=== PATIENT | male | born 1960 ===

== ENCOUNTER 2017-03-13 20:56 | Inpatient (IN) | payer OTHER ==
[2017-03-13 22:52] LABS: Basophils % (Auto) 0.3 % (0.0-1.8); Eosinophils # (Auto) 0.1 K/mm3 (0.0-0.4); Eosinophils % (Auto) 0.7 % (0.0-4.3); Hematocrit 49.7 % (35.5-45.6); Hemoglobin 16.4 gm/dl (11.8-15.2); Lymphocytes # (Auto) 0.9 K/mm3 (1.2-5.4); Lymphocytes % (Auto) 7.6 % (13.4-35.0); Mean Corpuscular HGB Conc 33 % (32-34); Mean Corpuscular Hemoglobin 31 pg (28-32); Mean Corpuscular Volume 93 fl (84-94); Monocytes # (Auto) 1.2 K/mm3 (0.0-0.8); Monocytes % (Auto) 10.1 % (0.0-7.3); Platelet Count 189 K/mm3 (140-440); Red Blood Count 5.35 M/mm3 (3.65-5.03); Red Cell Distribution Width 13.5 % (13.2-15.2)
[2017-03-13] MEDS ORDERED: NACL 0.9% 1000 ML 2,000 ML ONE (22:58)
[2017-03-13 23:06] LABS: BUN/Creatinine Ratio 12; Blood Urea Nitrogen 13 mg/dL (9-20); Calcium 8.5 mg/dL (8.4-10.2); Hemolysis Index 34
[2017-03-13] MEDS ORDERED: NACL 0.9% 1000 ML 1,000 ML IV ONE ×2 (23:13→23:51)
--- NOTE | 2017-03-14 01:31 | Cat Scan Report ---
FINAL REPORT PROCEDURE: CT ANGIO CHEST TECHNIQUE: Computerized tomographic angiography of the chest was performed after the IV injection of iodinated nonionic contrast including image processing. The image data was postprocessed using 2-dimensional multiplanar reformatted (MPR) and 3-dimensional (MIP and/or volume rendered) techniques. HISTORY: dyspnea, tachycardia, syncope COMPARISON: No prior studies are available for comparison. FINDINGS: Heart and pericardium: Normal. Thoracic aorta: There is no thoracic aortic aneurysm or dissection.. Pulmonary vasculature: There are large bilateral proximal pulmonary emboli. There is a saddle embolus... Lymph nodes: No enlarged thoracic lymph nodes. Lungs: There is suboptimal inspiration. There are no infiltrates, effusions or pneumothoraces.. Pleural space: No effusion, thickening, or pneumothorax. Musculoskeletal structures: No significant abnormality. Upper abdominal structures: No significant abnormality. IMPRESSION: Large bilateral and saddle pulmonary emboli. There is no thoracic aortic aneurysm or dissection. Dr. Enciso was notified by telephone at 12:27 a.m. central time.
[2017-03-14] MEDS ORDERED: HEPARIN 10,000 UNITS/10 ML IV ONE ×2 (01:36→02:00)
--- NOTE | 2017-03-14 01:58 | Emergency Department Report ---
- General Chief Complaint: Syncope Stated Complaint: SYNCOPE Time Seen by Provider: 03/13/17 23:48 Source: patient Mode of arrival: Ambulatory Limitations: No Limitations - History of Present Illness Initial Comments: Patient is a 56-year-old male with past history of hypertension who is presenting to emergency Department today for cough cold congestion for approximately one week. Patient states he feels as though he has the flu he's had a cough and runny nose bodyaches's for a week and a half. Patient states he has exertional shortness of breath. Patient asked his to bring him to the emergency department today and on arrival had a syncopal episode. Patient states he walked up some stairs was very short of breath and then while sitting in the emergency department he did pass out. Patient states the bodyaches or 7 out of 10 in severity. He has had no cervical swelling. Denies any fever. Patient also denies sore throat and nausea vomiting diarrhea at this time. Consistency: constant Improves With: nothing Worsens With: nothing - Related Data Home Medications Medication Instructions Recorded Confirmed Last Taken No Known Home Medications [No 03/13/17 03/13/17 Unknown Reported Home Medications] Allergies Allergy/AdvReac Type Severity Reaction Status Date / Time lisinopril Allergy Nausea Verified 03/13/17 23:09 Penicillins Allergy Itching Verified 03/13/17 23:09 shellfish derived Allergy Hives Verified 03/13/17 23:09 ED Review of Systems ROS: Stated complaint: SYNCOPE Other details as noted in HPI Comment: All other systems reviewed and negative ED Past Medical Hx - Past Medical History Hx Hypertension: Yes Additional medical history: Obesity - Surgical History Additional Surgical History: Bilateral Arthoscopy - Social History Smoking Status: Never Smoker Substance Use Type: None - Medications Home Medications: Home Medications Medication Instructions Recorded Confirmed Last Taken Type No Known Home Medications [No 03/13/17 03/13/17 Unknown History Reported Home Medications] ED Physical Exam - General Limitations: No Limitations General appearance: alert, in no apparent distress - Head Head exam: Present: atraumatic, normocephalic - Eye Eye exam: Present: normal appearance - ENT ENT exam: Present: mucous membranes moist - Neck Neck exam: Present: normal inspection - Respiratory Respiratory exam: Present: normal lung sounds bilaterally. Absent: respiratory distress, wheezes, rales, rhonchi - Cardiovascular Cardiovascular Exam: Present: normal rhythm, tachycardia. Absent: systolic murmur, diastolic murmur, rubs, gallop - GI/Abdominal GI/Abdominal exam: Present: soft, normal bowel sounds. Absent: distended, tenderness, guarding, rebound - Rectal Rectal exam: Present: deferred - Extremities Exam Extremities exam: Present: normal inspection - Back Exam Back exam: Present: normal inspection - Neurological Exam Neurological exam: Present: alert, oriented X3 - Psychiatric Psychiatric exam: Present: normal affect, normal mood - Skin Skin exam: Present: warm, dry, intact, normal color. Absent: rash ED Course Vital Signs 03/13/17 03/13/17 03/13/17 21:01 22:44 22:45 Temperature 98 F Pulse Rate 109 H 111 H 109 H Respiratory 25 H 22 Rate Blood Pressure 114/65 90/50 O2 Sat by Pulse 96 89 Oximetry 03/13/17 03/13/17 23:00 23:03 Temperature Pulse Rate 108 H Respiratory 20 20 Rate Blood Pressure 99/67 O2 Sat by Pulse 95 96 Oximetry ED Medical Decision Making - Lab Data Result diagrams: 03/13/17 22:00 03/13/17 22:00 - EKG Data -: EKG Interpreted by Me - EKG Data Interpretation: other (EKG shows sinus tachycardia 113 axis is leftward does have inferior Q waves no ST segment elevations or depressions is poor R-wave progression, interpretation 2114) - Medical Decision Making Patient's 56-year-old [place] male who is coming in with flulike symptoms. States patient's flu screen was negative because of the syncope shortness of breath and tachycardia CT a chest was performed to rule out PE or possible small pneumonia. The patient does show bilateral PE with saddle embolus there is no evidence of right heart strain at this time. Patient was hydrated with IV fluids and blood pressure did respond well. Patient is no acute distress at this time. Patient will be admitted to dr. Jensen the hospitalist service. Patient was started on heparin bolus and drip. Critical Care Time: Yes Critical care time in (mins) excluding proc time.: 30 Critical care attestation.: If time is entered above; I have spent that time in minutes in the direct care of this critically ill patient, excluding procedure time. ED Disposition Clinical Impression: Pulmonary embolism Qualifiers: Pulmonary embolism type: saddle Chronicity: acute Acute cor pulmonale presence : without acute cor pulmonale Qualified Code(s): I26.92 - Saddle embolus of pulmonary artery without acute cor pulmonale Disposition: DC-09 OP ADMIT IP TO THIS HOSP Is pt being admited?: Yes Does the pt Need Aspirin: No Condition: Serious
[2017-03-14] MEDS ORDERED: HEPARIN 25,000 UNIT in D5W 497.5 ML IV SCH (02:00)
[2017-03-14] MEDS ORDERED: MOTRIN PO PRN (02:34)
[2017-03-14] MEDS ORDERED: MOTRIN ONE (02:36)
[2017-03-14] MEDS ORDERED: NACL 0.9% 1000 ML 1,000 ML IV SCH (03:00)
[2017-03-14] MEDS ORDERED: MILK OF MAGNESIA PO PRN (07:27)
[2017-03-14] MEDS ORDERED: MORPHINE IV PRN (07:27)
[2017-03-14] MEDS ORDERED: PERCOCET 5/325 PO PRN (07:27)
[2017-03-14] MEDS ORDERED: TYLENOL PO PRN (07:27)
[2017-03-14] MEDS ORDERED: ZOFRAN IV PRN (07:27)
[2017-03-14] MEDS ORDERED: DULCOLAX PR PRN (07:27)
[2017-03-14] MEDS ORDERED: DILAUDID IV PRN (07:27)
--- NOTE | 2017-03-14 07:35 | Event Note ---
Date: 03/14/17 See dictated H/p in reports Acute PE Htn
[2017-03-14] MEDS ORDERED: XARELTO PO SCH (08:00)
[2017-03-14] MEDS ORDERED: NACL 0.45% 1000 ML 1,000 ML IV SCH (08:00)
--- NOTE | 2017-03-14 08:11 | History and Physical Report ---
CHIEF COMPLAINT: 1. Shortness of breath. 2. Syncope. HISTORY OF PRESENT ILLNESS: A 56-year-old male presents with cough, cold and congestion of 1 week. The patient also had a syncopal episode while coming to the Emergency Room. Also, shortness of breath on minimal exertion. No chest pain. No fever. No chills. Shortness of breath on minimal exertion, which is new onset. PAST MEDICAL HISTORY: Significant for hypertension. Currently not taking any medications. PAST SURGICAL HISTORY: Bilateral arthroscopy. SOCIAL HISTORY: Does not smoke. No alcohol, no recreational drugs. FAMILY HISTORY: Hypertension. REVIEW OF SYSTEMS: Significant for shortness of breath on exertion, which is new onset. Also, cough and cold and congestion for 1 week and syncope. Otherwise, a 14-point review of systems negative. PHYSICAL EXAMINATION: GENERAL: Middle-aged male, cooperative during examination. VITAL SIGNS: Blood pressure is 99/67, pulse is 108, respirations are 20, sats are 95%. HEENT: Unremarkable. Pupils equal and reactive. NECK: Supple, no lymphadenopathy, no thyromegaly. LUNGS: Scattered rhonchi bilaterally. CARDIOVASCULAR: S1, S2 heard. No gallop, no murmur, no rub. Apical impulse in left fifth intercostal space and midclavicular line. ABDOMEN: Soft and benign. No hepatosplenomegaly. No guarding, no rigidity. Hernial orifices are normal. EXTREMITIES: Good pedal pulses. No pedal edema. CENTRAL NERVOUS SYSTEM: Alert and oriented x 4, nonfocal exam. SKIN: Normal. LABORATORY DATA: Significant for white count 11,900, hemoglobin of 16.4, hematocrit of 49.7, platelet count of 189,000. Electrolytes are normal. Glucose is 167. Chest CT angiogram shows bilateral large emboli and saddle pulmonary embolism. No thoracic aortic aneurysm or dissection. ASSESSMENT AND PLAN: 1. Acute pulmonary embolism. The patient was started on IV heparin protocol and also the patient started on Xarelto 15 mg twice a day. Also, vascular surgery consult was requested because of a saddle embolism. At this point, I do not know whether the patient is a candidate for TPA. The patient is admitted to ICU and Dr. Rocha and Dr. Oconnor consulted. 2. Hypertension. At this point, the patient is slightly hypotensive 99/75. The patient not on any blood pressure medications at home. We will start on blood pressure medicines if his blood pressure goes up. 3. Hyperglycemia. The patient may be having borderline to full blown diabetes. Check hemoglobin A1c. Accu-Cheks a.c. and at bedtime. 2. Deep venous thrombosis prophylaxis. The patient already on IV heparin and Xarelto. JOB# [id number] VSM/NTS
[2017-03-14] MEDS: PEPCID IV SCH ×2 (11:10→23:44)
[2017-03-14 11:20] LABS: Basophils # (Auto) 0.1 K/mm3 (0.0-0.1); Basophils % (Auto) 0.7 % (0.0-1.8); Eosinophils % (Auto) 0.4 % (0.0-4.3); Hematocrit 47.7 % (35.5-45.6); Hemoglobin 15.6 gm/dl (11.8-15.2); Lymphocytes # (Auto) 1.2 K/mm3 (1.2-5.4); Lymphocytes % (Auto) 12.5 % (13.4-35.0); Mean Corpuscular HGB Conc 33 % (32-34); Mean Corpuscular Hemoglobin 31 pg (28-32); Mean Corpuscular Volume 93 fl (84-94); Monocytes # (Auto) 0.9 K/mm3 (0.0-0.8); Monocytes % (Auto) 10.2 % (0.0-7.3); Platelet Count 172 K/mm3 (140-440); Red Blood Count 5.13 M/mm3 (3.65-5.03); Red Cell Distribution Width 13.4 % (13.2-15.2)
[2017-03-14 11:27] LABS: BUN/Creatinine Ratio 14; Blood Urea Nitrogen 11 mg/dL (9-20); Calcium 8.2 mg/dL (8.4-10.2); Hemolysis Index 9
[2017-03-14] MEDS: NOVOLOG SUB-Q SCH ×3 (12:28→23:35)
--- NOTE | 2017-03-14 12:41 | Consultation ---
History of Present Illness - Reason for Consult Consult date: 03/14/17 Saddle Pulmonary Embolus Requesting physician: GODFREY CARMICHAEL - History of Present Illness The patient is a 56-year-old male who presented to the emergency department with complaint of shortness of breath. He states that 10 days ago he required prolonged bed rest secondary to an illness that he thought was the flu. He states that he have fever and chills that required time off of work and again prolonged bed rest. After taken off the remainder of the week he was able to return to work this past Thursday. However upon return to work he did have a cough and shortness of breath. This progressively worsened and included chest and back pain as well as a headache. He decided to present to the emergency department last night and upon ambulating into the emergency department he was told that he had a syncopal episode which required his and onlookers to get assistance from the emergency room staff to get him into the emergency department. Upon getting him into the emergency department he was tachycardic and hypotensive requiring fluid boluses to improve his heart rate and blood pressure. Eventually his workup included a CT of his chest which revealed a large saddle pulmonary embolus. He has since been started on heparin and supplemental oxygen through nasal cannula. He has been stabilized in the emergency department and has no complaints at this time. I have been consulted to violate him for possible thrombolysis of his pulmonary embolus. 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, other (e business specialist) Family history: CAD, stroke Medications and Allergies Allergies Allergy/AdvReac Type Severity Reaction Status Date / Time lisinopril Allergy Nausea Verified 03/13/17 23:09 Penicillins Allergy Itching Verified 03/13/17 23:09 shellfish derived Allergy Hives Verified 03/13/17 23:09 Home Medications Medication Instructions Recorded Confirmed Last Taken Type No Known Home Medications [No 03/13/17 03/13/17 Unknown History Reported Home Medications] Active Meds: Active Medications Acetaminophen (Tylenol) 650 mg PO Q4H PRN PRN Reason: Pain MILD(1-3)/Fever >100.5/HERRING Bisacodyl (Dulcolax) 10 mg MN QDAY PRN PRN Reason: Constipation unrelieved by MOM Famotidine (Pepcid) 20 mg IV BID [facility] Last Admin: 03/14/17 11:10 Dose: 20 mg Hydromorphone HCl (Dilaudid) 0.25 mg IV Q3H PRN PRN Reason: Pain, Moderate (4-6) Heparin Sodium (Porcine) 25, (000 unit/ Dextrose) 500 mls @ 50.62 mls/hr IV TITR PIOTR PRN Reason: 18 UNITS/KG/HR Last Admin: 03/14/17 03:52 Dose: 10.66 units/kg/hr, 30 mls/hr Sodium Chloride (Nacl 0.9% 1000 Ml) 1,000 mls @ 125 mls/hr IV DIRECT PIOTR Sodium Chloride (Nacl 0.45% 1000 Ml) 1,000 mls @ 100 mls/hr IV DIRECT PIOTR Insulin Aspart (Novolog) 0 units SUB-Q ACHS PIOTR PRN Reason: Protocol Last Admin: 03/14/17 12:28 Dose: Not Given Magnesium Hydroxide (Milk Of Magnesia) 30 ml PO Q4H PRN PRN Reason: Constipation Morphine Sulfate (Morphine) 4 mg IV Q4H PRN PRN Reason: Pain , Severe (7-10) Ondansetron HCl (Zofran) 4 mg IV Q8H PRN PRN Reason: N/V unrelieved by Reglan Oxycodone/Acetaminophen (Percocet 5/325) 1 tab PO Q6H PRN PRN Reason: Pain, Moderate (4-6) Rivaroxaban (Xarelto) 15 mg PO BIDDIAB [facility] PRN Reason: Protocol Review of Systems All systems: negative Exam - Constitutional Vitals: Temp Pulse Resp BP Pulse Ox 98 F 108 H 16 99/67 100 03/13/17 21:01 03/13/17 23:00 03/14/17 04:13 03/13/17 23:00 03/14/17 04:13 General appearance: Present: no acute distress - EENT ENT: hearing intact - Neck Neck: Present: supple - Respiratory Respiratory effort: normal - Cardiovascular Heart rate: 100 Rhythm: regular - Extremities Extremities: no ischemia, pulses intact Peripheral Pulses: within normal limits - Abdominal General gastrointestinal: Present: soft, non-tender Male genitourinary: Present: deferred - Rectal Rectal Exam: deferred - Integumentary Integumentary: Present: clear - Musculoskeletal Musculoskeletal: strength equal bilaterally Results - Labs CBC & Chem 7: 03/14/17 10:30 03/14/17 09:17 Labs: Abnormal lab results 03/13/17 03/13/17 03/13/17 Range/Units 21:24 22:00 22:00 WBC 11.9 H (4.5-11.0) K/mm3 RBC 5.35 H (3.65-5.03) M/mm3 Hgb 16.4 H (11.8-15.2) gm/dl Hct 49.7 H (35.5-45.6) % Lymph % (Auto) 7.6 L (13.4-35.0) % [place] % (Auto) 10.1 H (0.0-7.3) % Lymph # 0.9 L (1.2-5.4) K/mm3 [place] # 1.2 H (0.0-0.8) K/mm3 Seg Neutrophils % 81.3 H (40.0-70.0) % Seg Neutrophils # 9.7 H (1.8-7.7) K/mm3 Carbon Dioxide (22-30) mmol/L Glucose 167 H (75-100) mg/dL POC Glucose 141 H (70-105) Calcium (8.4-10.2) mg/dL 03/14/17 03/14/17 03/14/17 Range/Units 09:17 10:30 12:28 WBC (4.5-11.0) K/mm3 RBC 5.13 H (3.65-5.03) M/mm3 Hgb 15.6 H (11.8-15.2) gm/dl Hct 47.7 H (35.5-45.6) % Lymph % (Auto) 12.5 L (13.4-35.0) % [place] % (Auto) 10.2 H (0.0-7.3) % Lymph # (1.2-5.4) K/mm3 [place] # 0.9 H (0.0-0.8) K/mm3 Seg Neutrophils % 76.2 H (40.0-70.0) % Seg Neutrophils # (1.8-7.7) K/mm3 Carbon Dioxide 21 L (22-30) mmol/L Glucose 141 H (75-100) mg/dL POC Glucose 113 H (70-105) Calcium 8.2 L (8.4-10.2) mg/dL - Imaging and Cardiology CT scan - chest: image reviewed Assessment and Plan The patient is a 56-year-old male admitted with a symptomatic saddle embolus. He has now been stabilized and is satting in the mid 90s on supplemental oxygen. Abdomen order a stat 2-D echo to evaluate for evidence of right heart strain. If he has right heart strain and he would benefit from thrombolysis of his pulmonary embolus. If he does not have evidence of right heart strain and then given the size of his pulmonary embolus he still may benefit from thrombolysis however this will be determined by his symptoms and need for supplemental oxygen with activity. I have discussed this with the patient and his express understanding and agrees with the plan.
--- NOTE | 2017-03-14 17:43 | Event Note ---
Date: 03/14/17 Patient was seen and evaluated this morning, patient was hemodynamically stable saturating in the mid 90's. No new compliants. Vascular surgery consulted. Continue management per H/P.
[2017-03-14] MEDS ORDERED: HEPARIN/ 0.45% NACL-25,000 UNIT/500 ML 25,000 UNIT/500 ML BAG IV SCH (20:00)
[2017-03-15 07:22] LABS: Basophils % (Auto) 0.5 % (0.0-1.8); Eosinophils # (Auto) 0.1 K/mm3 (0.0-0.4); Hematocrit 48.5 % (35.5-45.6); Hemoglobin 16.1 gm/dl (11.8-15.2); Lymphocytes # (Auto) 1.1 K/mm3 (1.2-5.4); Lymphocytes % (Auto) 16.2 % (13.4-35.0); Mean Corpuscular HGB Conc 33 % (32-34); Mean Corpuscular Hemoglobin 31 pg (28-32); Mean Corpuscular Volume 94 fl (84-94); Monocytes # (Auto) 0.9 K/mm3 (0.0-0.8); Monocytes % (Auto) 13.4 % (0.0-7.3); Platelet Count 191 K/mm3 (140-440); Red Blood Count 5.19 M/mm3 (3.65-5.03); Red Cell Distribution Width 13.8 % (13.2-15.2)
[2017-03-15 07:45] LABS: Alanine Aminotransferase 15 units/L (7-56); BUN/Creatinine Ratio 13; Blood Urea Nitrogen 12 mg/dL (9-20); Calcium 8.3 mg/dL (8.4-10.2); Hemolysis Index 22
[2017-03-15] MEDS: NOVOLOG SUB-Q SCH ×3 (07:48→22:12)
[2017-03-15] MEDS: PEPCID IV SCH ×2 (11:00→22:12)
--- NOTE | 2017-03-15 11:30 | Event Note ---
Date: 03/15/17 Patient remains tachycardic and requires supplemental oxygen. Has difficulty finishing his sentences secondary shortness of breath. Will proceed with Pulmonary artery thrombolysis.
[2017-03-15] MEDS ORDERED: HEPARIN/NS 5000 UNIT/500ML(CATH LAB) 500 ML IR ONE (11:32)
[2017-03-15] MEDS ORDERED: HEPARIN 10,000 UNITS/10 ML ONE ×2 (11:32→11:34)
[2017-03-15] MEDS ORDERED: NACL 0.9% 500 ML 500 ML ONE (11:34)
[2017-03-15] MEDS ORDERED: VERSED ONE (11:36)
[2017-03-15] MEDS ORDERED: SUBLIMAZE ONE (11:37)
[2017-03-15] MEDS ORDERED: XYLOCAINE 2% INFILTRATI ONE (11:37)
[2017-03-15] MEDS ORDERED: CATHFLO ONE (11:41)
[2017-03-15] MEDS ORDERED: NACL 0.9% 1000 ML 1,000 ML IV SCH (12:00)
[2017-03-15] MEDS ORDERED: BENADRYL ONE (12:00)
[2017-03-15] MEDS ORDERED: NACL 0.9% 1000 ML 1,000 ML SHEATH SCH ×2 (12:00)
[2017-03-15] MEDS: NACL 0.9% 1000 ML 1,000 ML EKOSCLUMEN SCH ×4 (12:42→13:20)
[2017-03-15] MEDS: CATHFLO 10 MG in NACL 0.9% 250ML 250 ML IV SCH ×2 (12:44→13:20)
[2017-03-15] MEDS: CATHFLO 10 MG in NACL 0.9% 250ML 250 ML EKOSDLUMEN SCH ×2 (12:44→13:20)
[2017-03-15] MEDS: HEPARIN/ 0.45% NACL-25,000 UNIT/500 ML 25,000 UNIT/500 ML BAG SHEATH SCH ×4 (12:46→13:20)
[2017-03-15 12:47] LABS: INR 1.09 (0.87-1.13)
[2017-03-15 12:52] LABS: Partial Thromboplastin Time 70.5 Sec. (24.2-36.6)
[2017-03-15] MEDS ORDERED: MORPHINE IV PRN ×16 (12:55→14:17)
[2017-03-15] MEDS ORDERED: ZOFRAN IV PRN ×8 (12:55→14:17)
--- NOTE | 2017-03-15 12:55 | Operative Report ---
Operative Report Operative Report: Date of Procedure: 03/15/2017 Pre-operative Diagnosis: Saddle Pulmonary Embolus Post-operative Diagnosis: Same Procedure(s): 1. Ultrasound-Guided Access Right Common Femoral Vein 2. Ultrasound-Guided Access Right Common Femoral Vein 3. Diagnostic Pulmonary Arteriogram 4. Bilateral Catheters in Pulmonary Arteries 5. Bilateral Pulmonary Artery Thrombolysis with EKOS 106 x 12 cm Thrombolysis Catheters 6. Radiologic Supervision and Interpretation Surgeon: Danis Messer M.D. Orthopedic Cast Specialist: None Anesthesia: Local and IV sedation EBL: Minimal Counts: Correct Complications: None Condition: Stable Findings: Significant thrombus burden and bilateral main pulmonary arteries. Specimen: None Indication: The patient is a 56-year-old male who presented to the emergency department with shortness of breath. Upon arrival and had a syncopal episode requiring significant fluid resuscitation and supplemental oxygen to increase his saturations. He eventually was diagnosed with a saddle pulmonary embolus. Despite resuscitation and supplemental oxygen he has remained tachycardic and short of breath. It is felt that he would benefit from thrombolysis of his pulmonary embolus. He was given the risks, benefits, and alternative procedures and consented to the procedure. Description of Procedure: The patient was brought to the label fuser tender and laid in supine position. After he was adequately sedated his right groin was prepped and draped in normal sterile fashion. Ultrasound was used to identify the right common femoral vein and patency was confirmed. The overlying skin and soft tissue was anesthetized with lidocaine. 2 small stab incisions were made and then under ultrasound guidance the common femoral vein was accessed using an 18-gauge needle. A 0.035 Bentson wire was advanced to the central venous system under fluoroscopy. Using ultrasound guidance the common femoral vein was accessed a second time through the second stab incision using an 18-gauge needle. A 0.035 Bentson wire was then advanced into the central venous system under fluoroscopy. Two 6 Micronesian sheaths were placed by Seldinger technique. With the use of a 6 Micronesian JR4 catheter and the Bentson wire was able to access the main pulmonary artery and then the left pulmonary artery and performed a pulmonary arteriogram was demonstrated significant clot burden within the pulmonary artery. I advanced the Bentson wire into the lower segment and then removed the JR4 catheter and advanced the EKOS catheter into the artery and then advanced the thrombolytic lysis wire. I primed the drug port with 4 mg of TPA and primed the sheath and coolant port with the appropriate amount of heparin. I then advanced a JR4 catheter and Bentson wire through the other 6 Micronesian sheath and accessed the right pulmonary artery and performed an arteriogram which again demonstrated significant thrombus burden. I advanced the Bentson wire into the lower pulmonary segment and then removed the JR4 and advanced the EKOS catheter and then advanced the thrombolytic lysis wire. I primed the drug port with 4 mg of TPA and primed the coolant port and sheath with the appropriate amount of heparin. I then secured the sheaths with 0 silk sutures. All of the sheaths and catheters were then dressed sterilely. The patient tolerated the procedure well. All sponge, needle, and his counts were correct. The patient was taken to the recovery area in stable condition.
[2017-03-15] MEDS ORDERED: NACL 0.45% 1000 ML 1,000 ML IV ONE (14:34)
[2017-03-15] MEDS ORDERED: NACL 0.9% 1000 ML 1,000 ML ONE (14:50)
[2017-03-15] MEDS ORDERED: NOVOLOG SUB-Q ONE (17:16)
[2017-03-15 22:10] LABS: Hematocrit 45.2 % (35.5-45.6); Mean Corpuscular HGB Conc 33 % (32-34); Mean Corpuscular Hemoglobin 31 pg (28-32); Mean Corpuscular Volume 93 fl (84-94); Platelet Count 184 K/mm3 (140-440); Red Blood Count 4.84 M/mm3 (3.65-5.03); Red Cell Distribution Width 13.4 % (13.2-15.2)
[2017-03-15 22:22] LABS: BUN/Creatinine Ratio 16; Blood Urea Nitrogen 14 mg/dL (9-20); Hemolysis Index 11
[2017-03-15 22:22] LABS: Fibrinogen 568 mg/dl (211-480)
[2017-03-15 22:28] LABS: Heparin anti-factor XA < 0.10 U.I./ml (0.3-0.7)
[2017-03-15 22:51] LABS: Band Neutrophils # (Manual) 0.3 K/mm3; Basophils % (Manual) 0 % (0.0-1.8); Eosinophils % (Manual) 0 % (0.0-4.3); Monocytes % (Manual) 0 % (0.0-7.3); Total Cells Counted 100
[2017-03-15 22:52] LABS: Platelet Estimate Consistent w Auto; Poikilocytosis Few
[2017-03-16] MEDS ORDERED: NACL 0.9% 500 ML 1,000 ML ONE (04:14)
[2017-03-16 05:54] LABS: Hematocrit 45.2 % (35.5-45.6); Hemoglobin 14.7 gm/dl (11.8-15.2); Mean Corpuscular HGB Conc 33 % (32-34); Mean Corpuscular Hemoglobin 30 pg (28-32); Mean Corpuscular Volume 93 fl (84-94); Platelet Count 153 K/mm3 (140-440); Red Blood Count 4.85 M/mm3 (3.65-5.03); Red Cell Distribution Width 13.3 % (13.2-15.2)
[2017-03-16 07:55] LABS: BUN/Creatinine Ratio 17; Blood Urea Nitrogen 15 mg/dL (9-20); Calcium 8.2 mg/dL (8.4-10.2); Hemolysis Index 9
--- NOTE | 2017-03-16 09:23 | Progress Note ---
Assessment and Plan Assessment and plan: 56-year-old male was admitted after he was pleasant shortness of breath, hemodynamic instability CTA was done in the ED and was found to have a saddle embolus, patient was stabilized and admitted to ICU Saddle embolus with hypotension - Hypotension is resolved with fluid - Patient was on heparin drip and vascular surgery consulted, EKOS thrombolysis was done - Patient tolerated the procedure well, currently on eliquis - Blood pressure is holding Acute hypoxic respiratory failure - Patient is currently saturating well on room air Disposition -Continue ICU care History Interval history: Patient was seen and evaluated in the cardiac cath recovery room after thrombolysis was done. Hospitalist Physical - Physical exam Narrative exam: Not in cardiopulmonary distress. The patient appeared well nourished and normally developed. Vital signs as documented. Head exam is unremarkable. No scleral icterus . Neck is without jugular venous distension, thyromegaly, or carotid bruits. Lungs are clear to auscultation. Cardiac exam reveals regular rate and Rhythm. First and second heart sounds normal. No murmurs, rubs or gallops. Abdominal exam reveals normal bowel sounds, no masses, no organomegaly and no aortic enlargement. Extremities are nonedematous and both femoral and pedal pulses are normal. STORE CLERK CHECKER: Alert and oriented 3. No focal weakness. - Constitutional Vitals: Temp Pulse Resp BP Pulse Ox 98.8 F 84 14 104/53 98 03/16/17 08:00 03/16/17 08:31 03/16/17 08:31 03/16/17 08:31 03/16/17 08:31 General appearance: Present: no acute distress Results - Labs CBC & Chem 7: 03/16/17 05:15 03/16/17 06:59 Labs: Laboratory Last Values WBC 10.9 K/mm3 (4.5-11.0) 03/16/17 05:15 RBC 4.85 M/mm3 (3.65-5.03) 03/16/17 05:15 Hgb 14.7 gm/dl (11.8-15.2) 03/16/17 05:15 Hct 45.2 % (35.5-45.6) 03/16/17 05:15 MCV 93 fl (84-94) 03/16/17 05:15 MCH 30 pg (28-32) 03/16/17 05:15 MCHC 33 % (32-34) 03/16/17 05:15 RDW 13.3 % (13.2-15.2) 03/16/17 05:15 Plt Count 153 K/mm3 (140-440) 03/16/17 05:15 Lymph % (Auto) [employer] 03/16/17 05:15 [place] % (Auto) [employer] 03/16/17 05:15 Eos % (Auto) [employer] 03/16/17 05:15 Baso % (Auto) [employer] 03/16/17 05:15 Lymph # [employer] 03/16/17 05:15 [place] # [employer] 03/16/17 05:15 Eos # [employer] 03/16/17 05:15 Baso # [employer] 03/16/17 05:15 Add Manual Diff Complete 03/15/17 20:10 Total Counted 100 03/15/17 20:10 Seg Neutrophils % [employer] 03/16/17 05:15 Seg Neuts % (Manual) 94.0 % (40.0-70.0) H 03/15/17 20:10 Band Neutrophils % 3.0 % 03/15/17 20:10 Lymphocytes % (Manual) 3.0 % (13.4-35.0) L 03/15/17 20:10 Reactive Lymphs % (Man) 0 % 03/15/17 20:10 Monocytes % (Manual) 0 % (0.0-7.3) 03/15/17 20:10 Eosinophils % (Manual) 0 % (0.0-4.3) 03/15/17 20:10 Basophils % (Manual) 0 % (0.0-1.8) 03/15/17 20:10 Metamyelocytes % 0 % 03/15/17 20:10 Myelocytes % 0 % 03/15/17 20:10 Promyelocytes % 0 % 03/15/17 20:10 Blast Cells % 0 % 03/15/17 20:10 Nucleated RBC % Not Reportable 03/15/17 20:10 Seg Neutrophils # [employer] 03/16/17 05:15 Seg Neutrophils # Man 8.0 K/mm3 (1.8-7.7) H 03/15/17 20:10 Band Neutrophils # 0.3 K/mm3 03/15/17 20:10 Lymphocytes # (Manual) 0.3 K/mm3 (1.2-5.4) L 03/15/17 20:10 Abs React Lymphs (Man) 0.0 K/mm3 03/15/17 20:10 Monocytes # (Manual) 0.0 K/mm3 (0.0-0.8) 03/15/17 20:10 Eosinophils # (Manual) 0.0 K/mm3 (0.0-0.4) 03/15/17 20:10 Basophils # (Manual) 0.0 K/mm3 (0.0-0.1) 03/15/17 20:10 Metamyelocytes # 0.0 K/mm3 03/15/17 20:10 Myelocytes # 0.0 K/mm3 03/15/17 20:10 Promyelocytes # 0.0 K/mm3 03/15/17 20:10 Blast Cells # 0.0 K/mm3 03/15/17 20:10 WBC Morphology Not Reportable 03/15/17 20:10 Hypersegmented Neuts Not Reportable 03/15/17 20:10 Hyposegmented Neuts Not Reportable 03/15/17 20:10 Hypogranular Neuts Not Reportable 03/15/17 20:10 Smudge Cells Not Reportable 03/15/17 20:10 Toxic Granulation Not Reportable 03/15/17 20:10 Toxic Vacuolation Not Reportable 03/15/17 20:10 Dohle Bodies Not Reportable 03/15/17 20:10 Pelger-Huet Anomaly Not Reportable 03/15/17 20:10 Seth Rods Not Reportable 03/15/17 20:10 Platelet Estimate Consistent w auto 03/15/17 20:10 Clumped Platelets Not Reportable 03/15/17 20:10 Plt Clumps, EDTA Not Reportable 03/15/17 20:10 Large Platelets Not Reportable 03/15/17 20:10 Giant Platelets Not Reportable 03/15/17 20:10 Platelet Satelliting Not Reportable 03/15/17 20:10 Plt Morphology Comment Not Reportable 03/15/17 20:10 RBC Morphology Not Reportable 03/15/17 20:10 Dimorphic RBCs Not Reportable 03/15/17 20:10 Polychromasia Not Reportable 03/15/17 20:10 Hypochromasia Not Reportable 03/15/17 20:10 Poikilocytosis Few 03/15/17 20:10 Anisocytosis Not Reportable 03/15/17 20:10 Microcytosis Not Reportable 03/15/17 20:10 Macrocytosis Not Reportable 03/15/17 20:10 Spherocytes Not Reportable 03/15/17 20:10 Pappenheimer Bodies Not Reportable 03/15/17 20:10 Sickle Cells Not Reportable 03/15/17 20:10 Target Cells Not Reportable 03/15/17 20:10 Tear Drop Cells Not Reportable 03/15/17 20:10 Ovalocytes Not Reportable 03/15/17 20:10 Helmet Cells Not Reportable 03/15/17 20:10 Lewis-Blacktail Bodies Not Reportable 03/15/17 20:10 Hale Rings Not Reportable 03/15/17 20:10 Beaver Cells Not Reportable 03/15/17 20:10 Bite Cells Not Reportable 03/15/17 20:10 Crenated Cell Not Reportable 03/15/17 20:10 Elliptocytes Not Reportable 03/15/17 20:10 Acanthocytes (Spur) Not Reportable 03/15/17 20:10 Rouleaux Not Reportable 03/15/17 20:10 Hemoglobin C Crystals Not Reportable 03/15/17 20:10 Schistocytes Not Reportable 03/15/17 20:10 Malaria parasites Not Reportable 03/15/17 20:10 Osman Bodies Not Reportable 03/15/17 20:10 Hem Pathologist Commnt No 03/15/17 20:10 PT 14.7 Sec. (12.2-14.9) 03/15/17 12:21 INR 1.09 (0.87-1.13) 03/15/17 12:21 APTT 70.5 Sec. (24.2-36.6) H* 03/15/17 12:21 Fibrinogen 375 mg/dl (211-480) 03/16/17 06:59 Heparin Anti-Xa Level < 0.10 U.I./ml (0.3-0.7) L 03/15/17 Unknown Sodium 141 mmol/L (137-145) 03/16/17 06:59 Potassium 4.5 mmol/L (3.6-5.0) 03/16/17 06:59 Chloride 108.6 mmol/L (98-107) H 03/16/17 06:59 Carbon Dioxide 23 mmol/L (22-30) 03/16/17 06:59 Anion Gap 14 mmol/L 03/16/17 06:59 BUN 15 mg/dL (9-20) 03/16/17 06:59 Creatinine 0.9 mg/dL (0.8-1.5) 03/16/17 06:59 Estimated GFR > 60 ml/min 03/16/17 06:59 BUN/Creatinine Ratio 17 % 03/16/17 06:59 Glucose 114 mg/dL (75-100) H 03/16/17 06:59 POC Glucose 172 (70-105) H 03/15/17 22:05 Hemoglobin A1c 5.8 % (4-6) 03/14/17 10:30 Calcium 8.2 mg/dL (8.4-10.2) L 03/16/17 06:59 Total Bilirubin 0.40 mg/dL (0.1-1.2) 03/15/17 06:57 AST 16 units/L (5-40) 03/15/17 06:57 ALT 15 units/L (7-56) 03/15/17 06:57 Alkaline Phosphatase 54 units/L (35-129) 03/15/17 06:57 Total Protein 6.9 g/dL (6.3-8.2) 03/15/17 06:57 Albumin 3.0 g/dL (3.9-5) L 03/15/17 06:57 Albumin/Globulin Ratio 0.8 % 03/15/17 06:57
[2017-03-16] MEDS: PEPCID PO SCH ×2 (09:43→21:07)
[2017-03-16] MEDS: NOVOLOG SUB-Q SCH ×4 (09:43→21:07)
--- NOTE | 2017-03-16 10:11 | Progress Note ---
Assessment and Plan Patient doing well following thrombolytic therapy for his pulmonary emboli. He will need further evaluation with respiratory therapy and pulmonary/critical care to determine his O2 needs. Has not yet been out of bed yet. Would recommend that the patient be ambulated following his recovery from sheath removal. Subjective Date of service: 03/16/17 Interval history: Patient with subtle pulmonary emboli status post EKOS catheter placement and removal. At time of examination, the patient was sitting up in bed breathing comfortably with oxygen by nasal cannula. He has not yet been taken out of bed as his sheaths were just removed. Completes of chest pain or respiratory distress. Vital signs noted Objective - Constitutional Vitals: Vital Signs - 12hr 03/15/17 03/15/17 03/15/17 22:10 22:20 22:30 Temperature Pulse Rate 89 82 85 Pulse Rate [ Left Posterior Tibial] Pulse Rate [ Right Dorsalis Pedis] Pulse Rate [ Right Posterior Tibial] Respiratory 22 18 19 Rate Blood Pressure 118/69 118/69 118/69 O2 Sat by Pulse 97 97 96 Oximetry 03/15/17 03/15/17 03/15/17 22:40 22:50 23:00 Temperature Pulse Rate 85 85 80 Pulse Rate [ Left Posterior Tibial] Pulse Rate [ Right Dorsalis Pedis] Pulse Rate [ Right Posterior Tibial] Respiratory 17 16 16 Rate Blood Pressure 118/69 118/69 110/68 O2 Sat by Pulse 97 97 93 Oximetry 03/15/17 03/15/17 03/15/17 23:10 23:20 23:30 Temperature Pulse Rate 73 81 78 Pulse Rate [ Left Posterior Tibial] Pulse Rate [ Right Dorsalis Pedis] Pulse Rate [ Right Posterior Tibial] Respiratory 17 17 17 Rate Blood Pressure 118/69 118/69 118/69 O2 Sat by Pulse 98 98 98 Oximetry 03/15/17 03/15/17 03/15/17 23:34 23:35 23:40 Temperature 97.8 F Pulse Rate 79 80 Pulse Rate [ Left Posterior Tibial] Pulse Rate [ Right Dorsalis Pedis] Pulse Rate [ Right Posterior Tibial] Respiratory 16 17 Rate Blood Pressure 110/68 118/69 O2 Sat by Pulse 99 99 Oximetry 03/15/17 03/15/17 03/16/17 23:50 23:54 00:00 Temperature Pulse Rate 73 74 76 Pulse Rate [ Left Posterior Tibial] Pulse Rate [ Right Dorsalis Pedis] Pulse Rate [ Right Posterior Tibial] Respiratory 15 17 19 Rate Blood Pressure 118/69 118/69 100/66 O2 Sat by Pulse 99 96 98 Oximetry 03/16/17 03/16/17 03/16/17 00:10 00:20 00:30 Temperature Pulse Rate 73 85 73 Pulse Rate [ Left Posterior Tibial] Pulse Rate [ Right Dorsalis Pedis] Pulse Rate [ Right Posterior Tibial] Respiratory 18 16 18 Rate Blood Pressure 110/68 110/68 110/68 O2 Sat by Pulse 98 99 98 Oximetry 03/16/17 03/16/17 03/16/17 00:38 00:40 00:50 Temperature Pulse Rate 75 80 Pulse Rate [ 78 Left Posterior Tibial] Pulse Rate [ Right Dorsalis Pedis] Pulse Rate [ 78 Right Posterior Tibial] Respiratory 17 17 Rate Blood Pressure 100/66 100/66 O2 Sat by Pulse 98 98 Oximetry 03/16/17 03/16/17 03/16/17 01:00 01:10 01:20 Temperature Pulse Rate 85 77 83 Pulse Rate [ Left Posterior Tibial] Pulse Rate [ Right Dorsalis Pedis] Pulse Rate [ Right Posterior Tibial] Respiratory 14 17 18 Rate Blood Pressure 100/66 109/66 109/66 O2 Sat by Pulse 99 97 97 Oximetry 03/16/17 03/16/17 03/16/17 01:30 01:40 01:50 Temperature Pulse Rate 75 74 75 Pulse Rate [ Left Posterior Tibial] Pulse Rate [ Right Dorsalis Pedis] Pulse Rate [ Right Posterior Tibial] Respiratory 17 16 16 Rate Blood Pressure 109/66 109/66 109/66 O2 Sat by Pulse 97 97 97 Oximetry 03/16/17 03/16/17 03/16/17 02:00 02:10 02:20 Temperature Pulse Rate 79 69 65 Pulse Rate [ Left Posterior Tibial] Pulse Rate [ Right Dorsalis Pedis] Pulse Rate [ Right Posterior Tibial] Respiratory 16 14 14 Rate Blood Pressure 100/67 100/67 100/67 O2 Sat by Pulse 95 98 98 Oximetry 03/16/17 03/16/17 03/16/17 02:30 02:40 02:50 Temperature Pulse Rate 71 72 74 Pulse Rate [ Left Posterior Tibial] Pulse Rate [ Right Dorsalis Pedis] Pulse Rate [ Right Posterior Tibial] Respiratory 19 16 14 Rate Blood Pressure 100/67 100/67 100/67 O2 Sat by Pulse 97 100 100 Oximetry 03/16/17 03/16/17 03/16/17 03:00 03:10 03:20 Temperature Pulse Rate 74 76 72 Pulse Rate [ Left Posterior Tibial] Pulse Rate [ Right Dorsalis Pedis] Pulse Rate [ Right Posterior Tibial] Respiratory 20 18 19 Rate Blood Pressure 118/74 118/74 100/67 O2 Sat by Pulse 100 99 98 Oximetry 03/16/17 03/16/17 03/16/17 03:21 03:30 03:40 Temperature 97.4 F L Pulse Rate 70 72 Pulse Rate [ Left Posterior Tibial] Pulse Rate [ Right Dorsalis Pedis] Pulse Rate [ Right Posterior Tibial] Respiratory 16 17 Rate Blood Pressure 100/67 100/67 O2 Sat by Pulse 99 98 Oximetry 03/16/17 03/16/17 03/16/17 03:50 04:00 04:10 Temperature Pulse Rate 70 66 85 Pulse Rate [ 80 Left Posterior Tibial] Pulse Rate [ 80 Right Dorsalis Pedis] Pulse Rate [ 80 Right Posterior Tibial] Respiratory 17 16 15 Rate Blood Pressure 100/67 108/50 108/50 O2 Sat by Pulse 99 99 98 Oximetry 03/16/17 03/16/17 03/16/17 04:20 04:30 04:40 Temperature Pulse Rate 88 90 87 Pulse Rate [ Left Posterior Tibial] Pulse Rate [ Right Dorsalis Pedis] Pulse Rate [ Right Posterior Tibial] Respiratory 20 22 21 Rate Blood Pressure 108/50 108/50 108/50 O2 Sat by Pulse 98 98 99 Oximetry 03/16/17 03/16/17 03/16/17 04:50 05:00 05:10 Temperature Pulse Rate 93 H 88 88 Pulse Rate [ Left Posterior Tibial] Pulse Rate [ Right Dorsalis Pedis] Pulse Rate [ Right Posterior Tibial] Respiratory 21 14 18 Rate Blood Pressure 108/50 119/78 119/78 O2 Sat by Pulse 97 97 98 Oximetry 03/16/17 03/16/17 03/16/17 05:20 05:30 05:40 Temperature Pulse Rate 81 81 76 Pulse Rate [ Left Posterior Tibial] Pulse Rate [ Right Dorsalis Pedis] Pulse Rate [ Right Posterior Tibial] Respiratory 10 L 21 19 Rate Blood Pressure 119/78 119/78 119/78 O2 Sat by Pulse 97 98 97 Oximetry 03/16/17 03/16/17 03/16/17 05:50 06:00 06:10 Temperature Pulse Rate 73 75 73 Pulse Rate [ Left Posterior Tibial] Pulse Rate [ Right Dorsalis Pedis] Pulse Rate [ Right Posterior Tibial] Respiratory 18 19 17 Rate Blood Pressure 119/78 122/67 122/67 O2 Sat by Pulse 97 98 98 Oximetry 03/16/17 03/16/17 03/16/17 06:20 06:30 06:40 Temperature Pulse Rate 74 84 87 Pulse Rate [ Left Posterior Tibial] Pulse Rate [ Right Dorsalis Pedis] Pulse Rate [ Right Posterior Tibial] Respiratory 16 15 20 Rate Blood Pressure 122/67 122/67 122/67 O2 Sat by Pulse 98 98 99 Oximetry 03/16/17 03/16/17 03/16/17 06:52 07:00 07:10 Temperature Pulse Rate 80 82 76 Pulse Rate [ Left Posterior Tibial] Pulse Rate [ Right Dorsalis Pedis] Pulse Rate [ Right Posterior Tibial] Respiratory 17 18 13 Rate Blood Pressure 122/67 127/84 127/84 O2 Sat by Pulse 99 98 99 Oximetry 03/16/17 03/16/17 03/16/17 07:21 07:31 07:41 Temperature Pulse Rate 72 77 87 Pulse Rate [ Left Posterior Tibial] Pulse Rate [ Right Dorsalis Pedis] Pulse Rate [ Right Posterior Tibial] Respiratory 19 20 16 Rate Blood Pressure 127/84 127/84 O2 Sat by Pulse 99 99 99 Oximetry 03/16/17 03/16/17 03/16/17 07:51 08:00 08:01 Temperature 98.8 F Pulse Rate 72 75 Pulse Rate [ Left Posterior Tibial] Pulse Rate [ Right Dorsalis Pedis] Pulse Rate [ Right Posterior Tibial] Respiratory 12 15 Rate Blood Pressure 127/84 104/53 O2 Sat by Pulse 99 99 Oximetry 03/16/17 03/16/17 03/16/17 08:11 08:21 08:31 Temperature Pulse Rate 73 74 84 Pulse Rate [ Left Posterior Tibial] Pulse Rate [ Right Dorsalis Pedis] Pulse Rate [ Right Posterior Tibial] Respiratory 24 18 14 Rate Blood Pressure 104/53 104/53 104/53 O2 Sat by Pulse 100 99 98 Oximetry 03/16/17 03/16/17 03/16/17 08:41 08:51 09:01 Temperature Pulse Rate 88 83 79 Pulse Rate [ Left Posterior Tibial] Pulse Rate [ Right Dorsalis Pedis] Pulse Rate [ Right Posterior Tibial] Respiratory 15 14 21 Rate Blood Pressure 104/53 104/53 109/67 O2 Sat by Pulse 91 99 98 Oximetry 03/16/17 03/16/17 03/16/17 09:11 09:21 09:31 Temperature Pulse Rate 92 H 85 88 Pulse Rate [ Left Posterior Tibial] Pulse Rate [ Right Dorsalis Pedis] Pulse Rate [ Right Posterior Tibial] Respiratory 20 14 18 Rate Blood Pressure 104/53 104/53 104/53 O2 Sat by Pulse 98 99 97 Oximetry 03/16/17 09:41 Temperature Pulse Rate 84 Pulse Rate [ Left Posterior Tibial] Pulse Rate [ Right Dorsalis Pedis] Pulse Rate [ Right Posterior Tibial] Respiratory 18 Rate Blood Pressure 104/53 O2 Sat by Pulse 98 Oximetry General appearance: Present: no acute distress, obese - EENT Eyes: PERRL, EOM intact ENT: hearing intact - Neck Neck: supple, normal ROM - Respiratory Respiratory effort: normal - Breasts Breasts: deferred - Cardiovascular Rhythm: regular Extremities: no ischemia - Gastrointestinal General gastrointestinal: Present: deferred - Genitourinary Male genitourinary: deferred - Integumentary Integumentary: clear, warm - Psychiatric Psychiatric: appropriate mood/affect, cooperative - Labs CBC & Chem 7: 03/16/17 05:15 03/16/17 06:59 Labs: Abnormal lab results 03/15/17 03/15/17 03/15/17 Range/Units 12:21 17:09 20:10 Seg Neuts % (Manual) (40.0-70.0) % Lymphocytes % (Manual) (13.4-35.0) % Seg Neutrophils # Man (1.8-7.7) K/mm3 Lymphocytes # (Manual) (1.2-5.4) K/mm3 APTT 70.5 H* (24.2-36.6) Sec. Fibrinogen 575 H (211-480) mg/dl Heparin Anti-Xa Level (0.3-0.7) U.I./ml Chloride (98-107) mmol/L Carbon Dioxide 20 L (22-30) mmol/L Glucose 200 H (75-100) mg/dL POC Glucose 150 H (70-105) Calcium 8.0 L (8.4-10.2) mg/dL 03/15/17 03/15/17 03/15/17 Range/Units 20:10 22:05 Unknown Seg Neuts % (Manual) 94.0 H (40.0-70.0) % Lymphocytes % (Manual) 3.0 L (13.4-35.0) % Seg Neutrophils # Man 8.0 H (1.8-7.7) K/mm3 Lymphocytes # (Manual) 0.3 L (1.2-5.4) K/mm3 APTT (24.2-36.6) Sec. Fibrinogen 568 H (211-480) mg/dl Heparin Anti-Xa Level < 0.10 L (0.3-0.7) U.I./ml Chloride (98-107) mmol/L Carbon Dioxide (22-30) mmol/L Glucose (75-100) mg/dL POC Glucose 172 H (70-105) Calcium (8.4-10.2) mg/dL 03/16/17 Range/Units 06:59 Seg Neuts % (Manual) (40.0-70.0) % Lymphocytes % (Manual) (13.4-35.0) % Seg Neutrophils # Man (1.8-7.7) K/mm3 Lymphocytes # (Manual) (1.2-5.4) K/mm3 APTT (24.2-36.6) Sec. Fibrinogen (211-480) mg/dl Heparin Anti-Xa Level (0.3-0.7) U.I./ml Chloride 108.6 H (98-107) mmol/L Carbon Dioxide (22-30) mmol/L Glucose 114 H (75-100) mg/dL POC Glucose (70-105) Calcium 8.2 L (8.4-10.2) mg/dL
--- NOTE | 2017-03-16 10:13 | Event Note ---
Date: 03/16/17 Pt is status post Ekos placement and subsequent removal for treatment of symptomatic PE. Catheters were removed without incident this morning. Currently he is very comfortable and has no complaints of SOB or chest pain. He can speak in complete sentences without any sign of dyspnea. He has not gotten out of bed yet, so he's not been able to physical exert himself after the procedure. There is no further need for acute interventional vascular services. Do not hesitate to contact us with questions.
[2017-03-16] MEDS: ELIQUIS PO SCH ×2 (11:28→21:06)
--- NOTE | 2017-03-16 17:15 | Consultation ---
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 Was sick recently with flu-like symptoms, laid in bed a lot. Subsequently developed increased SOB and a syncopal episode on presentation. Found to have large bilateral PE and is s/p EKOS now with improved SOB, on RA. Denies hx of VTE but mother had hx. No chest pain, fevers, chills, cough. Active Medications Acetaminophen (Tylenol) 650 mg PO Q4H PRN PRN Reason: Pain MILD(1-3)/Fever >100.5/HERRING Apixaban (Eliquis) 10 mg PO Q12HR PIOTR PRN Reason: Protocol Stop: 03/22/17 09:59 Last Admin: 03/16/17 11:28 Dose: 10 mg Apixaban (Eliquis) 5 mg PO Q12HR PIOTR PRN Reason: Protocol Bisacodyl (Dulcolax) 10 mg AK QDAY PRN PRN Reason: Constipation unrelieved by MOM Famotidine (Pepcid) 20 mg PO BID [facility] Last Admin: 03/16/17 09:43 Dose: 20 mg Hydromorphone HCl (Dilaudid) 0.25 mg IV Q3H PRN PRN Reason: Pain, Moderate (4-6) Insulin Aspart (Novolog) 0 units SUB-Q ACHS [facility] PRN Reason: Protocol Last Admin: 03/16/17 15:31 Dose: Not Given Magnesium Hydroxide (Milk Of Magnesia) 30 ml PO Q4H PRN PRN Reason: Constipation Morphine Sulfate (Morphine) 2 mg IV Q4H PRN PRN Reason: Pain, Moderate (4-6) Morphine Sulfate (Morphine) 4 mg IV Q4H PRN PRN Reason: Pain , Severe (7-10) Ondansetron HCl (Zofran) 4 mg IV Q8H PRN PRN Reason: Nausea And Vomiting Oxycodone/Acetaminophen (Percocet 5/325) 1 tab PO Q6H PRN PRN Reason: Pain, Moderate (4-6) 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, full code, other (consulting business developer). denies: smoking, alcohol abuse, prescription drug abuse, IV drug use Family history: CAD, stroke Medications and Allergies Allergies Allergy/AdvReac Type Severity Reaction Status Date / Time lisinopril Allergy Nausea Verified 03/13/17 23:09 Penicillins Allergy Itching Verified 03/13/17 23:09 shellfish derived Allergy Hives Verified 03/13/17 23:09 Home Medications Medication Instructions Recorded Confirmed Last Taken Type RX: No Known Home Medications [No 03/13/17 03/13/17 Unknown History Reported Home Medications] Active Meds: Active Medications Acetaminophen (Tylenol) 650 mg PO Q4H PRN PRN Reason: Pain MILD(1-3)/Fever >100.5/HERRING Apixaban (Eliquis) 10 mg PO Q12HR PIOTR PRN Reason: Protocol Stop: 03/22/17 09:59 Last Admin: 03/16/17 11:28 Dose: 10 mg Apixaban (Eliquis) 5 mg PO Q12HR PIOTR PRN Reason: Protocol Bisacodyl (Dulcolax) 10 mg [place] QDAY PRN PRN Reason: Constipation unrelieved by MOM Famotidine (Pepcid) 20 mg PO BID [facility] Last Admin: 03/16/17 09:43 Dose: 20 mg Hydromorphone HCl (Dilaudid) 0.25 mg IV Q3H PRN PRN Reason: Pain, Moderate (4-6) Insulin Aspart (Novolog) 0 units SUB-Q ACHS PIOTR PRN Reason: Protocol Last Admin: 03/16/17 15:31 Dose: Not Given Magnesium Hydroxide (Milk Of Magnesia) 30 ml PO Q4H PRN PRN Reason: Constipation Morphine Sulfate (Morphine) 2 mg IV Q4H PRN PRN Reason: Pain, Moderate (4-6) Morphine Sulfate (Morphine) 4 mg IV Q4H PRN PRN Reason: Pain , Severe (7-10) Ondansetron HCl (Zofran) 4 mg IV Q8H PRN PRN Reason: Nausea And Vomiting Oxycodone/Acetaminophen (Percocet 5/325) 1 tab PO Q6H PRN PRN Reason: Pain, Moderate (4-6) Review of Systems All systems: negative Physical Examination Vital signs: Vital Signs Temp Pulse BP Pulse Ox 98 F 109 H 114/65 96 03/13/17 21:01 03/13/17 21:01 03/13/17 21:01 03/13/17 21:01 General appearance: no acute distress, alert, other (obese) Eyes: non-icteric ENT: oropharynx moist Neck: supple Effort: normal Ascultation: Bilateral: clear Cardiovascular: regular rate and rhythm (no mrg) Integumentary: normal Extremities: no cyanosis, no edema (although L leg looks slightly larger in circumference), pink and warm normal mental status, non-focal exam, pupils equal and round, CN II-XII normal mood appropriate, affect normal Results - Laboratory Findings CBC and BMP: 03/16/17 05:15 03/16/17 06:59 PT/INR, D-dimer PT 14.7 Sec. (12.2-14.9) 03/15/17 12:21 INR 1.09 (0.87-1.13) 03/15/17 12:21 Abnormal lab findings: Abnormal Labs 03/13/17 03/13/17 03/13/17 21:24 22:00 22:00 WBC 11.9 H RBC 5.35 H Hgb 16.4 H Hct 49.7 H Lymph % (Auto) 7.6 L [place] % (Auto) 10.1 H Lymph # 0.9 L [place] # 1.2 H Seg Neutrophils % 81.3 H Seg Neuts % (Manual) Lymphocytes % (Manual) Seg Neutrophils # 9.7 H Seg Neutrophils # Man Lymphocytes # (Manual) APTT Fibrinogen Heparin Anti-Xa Level Chloride Carbon Dioxide Glucose 167 H POC Glucose 141 H Calcium Albumin 03/14/17 03/14/17 03/14/17 09:17 10:30 12:28 WBC RBC 5.13 H Hgb 15.6 H Hct 47.7 H Lymph % (Auto) 12.5 L [place] % (Auto) 10.2 H Lymph # [place] # 0.9 H Seg Neutrophils % 76.2 H Seg Neuts % (Manual) Lymphocytes % (Manual) Seg Neutrophils # Seg Neutrophils # Man Lymphocytes # (Manual) APTT Fibrinogen Heparin Anti-Xa Level Chloride Carbon Dioxide 21 L Glucose 141 H POC Glucose 113 H Calcium 8.2 L Albumin 03/14/17 03/14/17 03/15/17 17:36 23:25 06:57 WBC RBC 5.19 H Hgb 16.1 H Hct 48.5 H Lymph % (Auto) [place] % (Auto) 13.4 H Lymph # 1.1 L [place] # 0.9 H Seg Neutrophils % Seg Neuts % (Manual) Lymphocytes % (Manual) Seg Neutrophils # Seg Neutrophils # Man Lymphocytes # (Manual) APTT Fibrinogen Heparin Anti-Xa Level Chloride Carbon Dioxide Glucose POC Glucose 110 H 159 H Calcium Albumin 03/15/17 03/15/17 03/15/17 06:57 12:21 17:09 WBC RBC Hgb Hct Lymph % (Auto) [place] % (Auto) Lymph # [place] # Seg Neutrophils % Seg Neuts % (Manual) Lymphocytes % (Manual) Seg Neutrophils # Seg Neutrophils # Man Lymphocytes # (Manual) APTT 70.5 H* Fibrinogen 575 H Heparin Anti-Xa Level Chloride 108.6 H Carbon Dioxide 21 L Glucose 116 H POC Glucose 150 H Calcium 8.3 L Albumin 3.0 L 03/15/17 03/15/17 03/15/17 20:10 20:10 22:05 WBC RBC Hgb Hct Lymph % (Auto) [place] % (Auto) Lymph # [place] # Seg Neutrophils % Seg Neuts % (Manual) 94.0 H Lymphocytes % (Manual) 3.0 L Seg Neutrophils # Seg Neutrophils # Man 8.0 H Lymphocytes # (Manual) 0.3 L APTT Fibrinogen Heparin Anti-Xa Level Chloride Carbon Dioxide 20 L Glucose 200 H POC Glucose 172 H Calcium 8.0 L Albumin 03/15/17 03/16/17 03/16/17 Unknown 06:59 08:08 WBC RBC Hgb Hct Lymph % (Auto) [place] % (Auto) Lymph # [place] # Seg Neutrophils % Seg Neuts % (Manual) Lymphocytes % (Manual) Seg Neutrophils # Seg Neutrophils # Man Lymphocytes # (Manual) APTT Fibrinogen 568 H Heparin Anti-Xa Level < 0.10 L Chloride 108.6 H Carbon Dioxide Glucose 114 H POC Glucose 113 H Calcium 8.2 L Albumin 03/16/17 03/16/17 11:41 15:17 WBC RBC Hgb Hct Lymph % (Auto) [place] % (Auto) Lymph # [place] # Seg Neutrophils % Seg Neuts % (Manual) Lymphocytes % (Manual) Seg Neutrophils # Seg Neutrophils # Man Lymphocytes # (Manual) APTT Fibrinogen Heparin Anti-Xa Level Chloride Carbon Dioxide Glucose POC Glucose 109 H 111 H Calcium Albumin - Diagnostic Findings Chest x-ray: report reviewed, image reviewed CT scan - chest: report reviewed, image reviewed Assessment and Plan Imp: 1. Acute PE and bilateral DVT; risk factors -> immobility/stasis, obesity, family history 2. Syncope 2/2 above 3. Morbid obesity Rec: 1. Eliquis per protocol; needs at least 6 months of OAC 2. Bed rest tonight given bilateral DVTs 3. Weight loss 4. Consider hypercoag. work-up Plan of care reviewed with patient, he understands/agrees Thanks for the consult. Will follow closely.
--- NOTE | 2017-03-16 17:38 | Progress Note ---
Assessment and Plan Assessment and plan: 56-year-old male was admitted after he was pleasant shortness of breath, hemodynamic instability CTA was done in the ED and was found to have a saddle embolus, patient was stabilized and admitted to ICU Saddle embolus with hypotension - Hypotension is resolved with fluid - Patient was on heparin drip and vascular surgery consulted, EKOS thrombolysis was done - Patient tolerated the procedure well, currently on eliquis - Blood pressure is holding Bilateral lower extremity DVT - Doppler U/S showed bilateral DVT Acute hypoxic respiratory failure - Patient is currently saturating well on room air Disposition -Continue ICU care History Interval history: Patient was seen and evaluated patient didn't have SOB, fever or chills. Hospitalist Physical - Physical exam Narrative exam: Not in cardiopulmonary distress. The patient appeared well nourished and normally developed. Vital signs as documented. Head exam is unremarkable. No scleral icterus . Neck is without jugular venous distension, thyromegaly, or carotid bruits. Lungs are clear to auscultation. Cardiac exam reveals regular rate and Rhythm. First and second heart sounds normal. No murmurs, rubs or gallops. Abdominal exam reveals normal bowel sounds, no masses, no organomegaly and no aortic enlargement. Extremities are nonedematous and both femoral and pedal pulses are normal. SECURITY SYSTEM INSTALLER: Alert and oriented 3. No focal weakness. - Constitutional Vitals: Temp Pulse Resp BP Pulse Ox 98.2 F 100 H 25 H 136/88 98 03/16/17 15:30 03/16/17 16:00 03/16/17 16:00 03/16/17 16:00 03/16/17 16:00 General appearance: Present: no acute distress, obese Results - Labs CBC & Chem 7: 03/16/17 05:15 03/16/17 06:59 Labs: Laboratory Last Values WBC 10.9 K/mm3 (4.5-11.0) 03/16/17 05:15 RBC 4.85 M/mm3 (3.65-5.03) 03/16/17 05:15 Hgb 14.7 gm/dl (11.8-15.2) 03/16/17 05:15 Hct 45.2 % (35.5-45.6) 03/16/17 05:15 MCV 93 fl (84-94) 03/16/17 05:15 MCH 30 pg (28-32) 03/16/17 05:15 MCHC 33 % (32-34) 03/16/17 05:15 RDW 13.3 % (13.2-15.2) 03/16/17 05:15 Plt Count 153 K/mm3 (140-440) 03/16/17 05:15 Lymph % (Auto) Metalizer Field Operation 03/16/17 05:15 [place] % (Auto) Metalizer Field Operation 03/16/17 05:15 Eos % (Auto) Metalizer Field Operation 03/16/17 05:15 Baso % (Auto) Metalizer Field Operation 03/16/17 05:15 Lymph # [employer]izer [employer] Operation 03/16/17 05:15 [place] # Metalizer Field Operation 03/16/17 05:15 Eos # Metalizer Field Operation 03/16/17 05:15 Baso # Metalizer [employer] Operation 03/16/17 05:15 Add Manual Diff Complete 03/15/17 20:10 Total Counted 100 03/15/17 20:10 Seg Neutrophils % Metalizer [employer] Operation 03/16/17 05:15 Seg Neuts % (Manual) 94.0 % (40.0-70.0) H 03/15/17 20:10 Band Neutrophils % 3.0 % 03/15/17 20:10 Lymphocytes % (Manual) 3.0 % (13.4-35.0) L 03/15/17 20:10 Reactive Lymphs % (Man) 0 % 03/15/17 20:10 Monocytes % (Manual) 0 % (0.0-7.3) 03/15/17 20:10 Eosinophils % (Manual) 0 % (0.0-4.3) 03/15/17 20:10 Basophils % (Manual) 0 % (0.0-1.8) 03/15/17 20:10 Metamyelocytes % 0 % 03/15/17 20:10 Myelocytes % 0 % 03/15/17 20:10 Promyelocytes % 0 % 03/15/17 20:10 Blast Cells % 0 % 03/15/17 20:10 Nucleated RBC % Not Reportable 03/15/17 20:10 Seg Neutrophils # Metalizer Field Operation 03/16/17 05:15 Seg Neutrophils # Man 8.0 K/mm3 (1.8-7.7) H 03/15/17 20:10 Band Neutrophils # 0.3 K/mm3 03/15/17 20:10 Lymphocytes # (Manual) 0.3 K/mm3 (1.2-5.4) L 03/15/17 20:10 Abs React Lymphs (Man) 0.0 K/mm3 03/15/17 20:10 Monocytes # (Manual) 0.0 K/mm3 (0.0-0.8) 03/15/17 20:10 Eosinophils # (Manual) 0.0 K/mm3 (0.0-0.4) 03/15/17 20:10 Basophils # (Manual) 0.0 K/mm3 (0.0-0.1) 03/15/17 20:10 Metamyelocytes # 0.0 K/mm3 03/15/17 20:10 Myelocytes # 0.0 K/mm3 03/15/17 20:10 Promyelocytes # 0.0 K/mm3 03/15/17 20:10 Blast Cells # 0.0 K/mm3 03/15/17 20:10 WBC Morphology Not Reportable 03/15/17 20:10 Hypersegmented Neuts Not Reportable 03/15/17 20:10 Hyposegmented Neuts Not Reportable 03/15/17 20:10 Hypogranular Neuts Not Reportable 03/15/17 20:10 Smudge Cells Not Reportable 03/15/17 20:10 Toxic Granulation Not Reportable 03/15/17 20:10 Toxic Vacuolation Not Reportable 03/15/17 20:10 Dohle Bodies Not Reportable 03/15/17 20:10 Pelger-Huet Anomaly Not Reportable 03/15/17 20:10 Seth Rods Not Reportable 03/15/17 20:10 Platelet Estimate Consistent w auto 03/15/17 20:10 Clumped Platelets Not Reportable 03/15/17 20:10 Plt Clumps, EDTA Not Reportable 03/15/17 20:10 Large Platelets Not Reportable 03/15/17 20:10 Giant Platelets Not Reportable 03/15/17 20:10 Platelet Satelliting Not Reportable 03/15/17 20:10 Plt Morphology Comment Not Reportable 03/15/17 20:10 RBC Morphology Not Reportable 03/15/17 20:10 Dimorphic RBCs Not Reportable 03/15/17 20:10 Polychromasia Not Reportable 03/15/17 20:10 Hypochromasia Not Reportable 03/15/17 20:10 Poikilocytosis Few 03/15/17 20:10 Anisocytosis Not Reportable 03/15/17 20:10 Microcytosis Not Reportable 03/15/17 20:10 Macrocytosis Not Reportable 03/15/17 20:10 Spherocytes Not Reportable 03/15/17 20:10 Pappenheimer Bodies Not Reportable 03/15/17 20:10 Sickle Cells Not Reportable 03/15/17 20:10 Target Cells Not Reportable 03/15/17 20:10 Tear Drop Cells Not Reportable 03/15/17 20:10 Ovalocytes Not Reportable 03/15/17 20:10 Helmet Cells Not Reportable 03/15/17 20:10 [place] Bodies Not Reportable 03/15/17 20:10 [place] Rings Not Reportable 03/15/17 20:10 [place] Cells Not Reportable 03/15/17 20:10 Bite Cells Not Reportable 03/15/17 20:10 Crenated Cell Not Reportable 03/15/17 20:10 Elliptocytes Not Reportable 03/15/17 20:10 Acanthocytes (Spur) Not Reportable 03/15/17 20:10 Rouleaux Not Reportable 03/15/17 20:10 Hemoglobin C Crystals Not Reportable 03/15/17 20:10 Schistocytes Not Reportable 03/15/17 20:10 Malaria parasites Not Reportable 03/15/17 20:10 [place]man Bodies Not Reportable 03/15/17 20:10 Hem Pathologist Commnt No 03/15/17 20:10 PT 14.7 Sec. (12.2-14.9) 03/15/17 12:21 INR 1.09 (0.87-1.13) 03/15/17 12:21 APTT 70.5 Sec. (24.2-36.6) H* 03/15/17 12:21 Fibrinogen 375 mg/dl (211-480) 03/16/17 06:59 Heparin Anti-Xa Level < 0.10 U.I./ml (0.3-0.7) L 03/15/17 Unknown Sodium 141 mmol/L (137-145) 03/16/17 06:59 Potassium 4.5 mmol/L (3.6-5.0) 03/16/17 06:59 Chloride 108.6 mmol/L (98-107) H 03/16/17 06:59 Carbon Dioxide 23 mmol/L (22-30) 03/16/17 06:59 Anion Gap 14 mmol/L 03/16/17 06:59 BUN 15 mg/dL (9-20) 03/16/17 06:59 Creatinine 0.9 mg/dL (0.8-1.5) 03/16/17 06:59 Estimated GFR > 60 ml/min 03/16/17 06:59 BUN/Creatinine Ratio 17 % 03/16/17 06:59 Glucose 114 mg/dL (75-100) H 03/16/17 06:59 POC Glucose 111 (70-105) H 03/16/17 15:17 Hemoglobin A1c 5.8 % (4-6) 03/14/17 10:30 Calcium 8.2 mg/dL (8.4-10.2) L 03/16/17 06:59 Total Bilirubin 0.40 mg/dL (0.1-1.2) 03/15/17 06:57 AST 16 units/L (5-40) 03/15/17 06:57 ALT 15 units/L (7-56) 03/15/17 06:57 Alkaline Phosphatase 54 units/L (35-129) 03/15/17 06:57 Total Protein 6.9 g/dL (6.3-8.2) 03/15/17 06:57 Albumin 3.0 g/dL (3.9-5) L 03/15/17 06:57 Albumin/Globulin Ratio 0.8 % 03/15/17 06:57 - Imaging and Cardiology Imaging and Cardiology: Doppler U/S showed bilateral DVT.
[2017-03-16] MEDS: TESSALON PERLES PO SCH (21:07)
[2017-03-17] MEDS: TESSALON PERLES PO SCH ×3 (06:00→21:35)
[2017-03-17 06:25] LABS: BUN/Creatinine Ratio 21; Blood Urea Nitrogen 17 mg/dL (9-20); Calcium 7.7 mg/dL (8.4-10.2); Hemolysis Index 26
[2017-03-17] MEDS: NOVOLOG SUB-Q SCH ×4 (07:30→21:39)
[2017-03-17] MEDS: PEPCID PO SCH ×2 (09:37→21:35)
[2017-03-17] MEDS: ELIQUIS PO SCH ×2 (09:38→21:36)
--- NOTE | 2017-03-17 11:41 | Progress Note ---
Assessment and Plan Assessment and plan: Saddle embolus with hypotension -CTA was done in the ED and was found to have a saddle embolus - Hypotension is resolved with fluid - Patient was on heparin drip and vascular surgery consulted, EKOS thrombolysis was done - Patient tolerated the procedure well, currently on eliquis - Blood pressure is holding -Transfer to the medical floor\ -Hypercoagulable workup Bilateral lower extremity DVT - Doppler U/S showed bilateral DVT Acute hypoxic respiratory failure - Patient is currently saturating well on room air Disposition -Continue ICU care History Interval history: No new issues overnight. Hospitalist Physical - Constitutional Vitals: Temp Pulse Resp BP Pulse Ox 97.5 F L 86 14 123/82 95 03/17/17 11:32 03/17/17 09:21 03/17/17 09:21 03/17/17 09:21 03/17/17 09:21 General appearance: Present: no acute distress, obese - EENT Eyes: Present: PERRL, EOM intact ENT: hearing intact, clear oral mucosa, dentition normal - Neck Neck: Present: supple, normal ROM - Respiratory Respiratory effort: normal Respiratory: bilateral: CTA - Cardiovascular Rhythm: regular Heart Sounds: Present: S1 & S2. Absent: gallop, rub - Extremities Extremities: no ischemia, No edema, Full ROM - Abdominal General gastrointestinal: soft, non-tender, non-distended, normal bowel sounds - Integumentary Integumentary: Present: clear, warm, dry - Neurologic Neurologic: CNII-XII intact, moves all extremities Results - Labs CBC & Chem 7: 03/16/17 05:15 03/17/17 03:50 Labs: Laboratory Last Values WBC 10.9 K/mm3 (4.5-11.0) 03/16/17 05:15 RBC 4.85 M/mm3 (3.65-5.03) 03/16/17 05:15 Hgb 14.7 gm/dl (11.8-15.2) 03/16/17 05:15 Hct 45.2 % (35.5-45.6) 03/16/17 05:15 MCV 93 fl (84-94) 03/16/17 05:15 MCH 30 pg (28-32) 03/16/17 05:15 MCHC 33 % (32-34) 03/16/17 05:15 RDW 13.3 % (13.2-15.2) 03/16/17 05:15 Plt Count 153 K/mm3 (140-440) 03/16/17 05:15 Lymph % (Auto) Side Seam Tender 03/16/17 05:15 [place] % (Auto) Side Seam Tender 03/16/17 05:15 Eos % (Auto) Side Seam Tender 03/16/17 05:15 Baso % (Auto) Side Seam Tender 03/16/17 05:15 Lymph # Side Seam Tender 03/16/17 05:15 [place] # Side Seam Tender 03/16/17 05:15 Eos # Side Seam Tender 03/16/17 05:15 Baso # Side Seam Tender 03/16/17 05:15 Add Manual Diff Complete 03/15/17 20:10 Total Counted 100 03/15/17 20:10 Seg Neutrophils % Side Seam Tender 03/16/17 05:15 Seg Neuts % (Manual) 94.0 % (40.0-70.0) H 03/15/17 20:10 Band Neutrophils % 3.0 % 03/15/17 20:10 Lymphocytes % (Manual) 3.0 % (13.4-35.0) L 03/15/17 20:10 Reactive Lymphs % (Man) 0 % 03/15/17 20:10 Monocytes % (Manual) 0 % (0.0-7.3) 03/15/17 20:10 Eosinophils % (Manual) 0 % (0.0-4.3) 03/15/17 20:10 Basophils % (Manual) 0 % (0.0-1.8) 03/15/17 20:10 Metamyelocytes % 0 % 03/15/17 20:10 Myelocytes % 0 % 03/15/17 20:10 Promyelocytes % 0 % 03/15/17 20:10 Blast Cells % 0 % 03/15/17 20:10 Nucleated RBC % Not Reportable 03/15/17 20:10 Seg Neutrophils # Side Seam Tender 03/16/17 05:15 Seg Neutrophils # Man 8.0 K/mm3 (1.8-7.7) H 03/15/17 20:10 Band Neutrophils # 0.3 K/mm3 03/15/17 20:10 Lymphocytes # (Manual) 0.3 K/mm3 (1.2-5.4) L 03/15/17 20:10 Abs React Lymphs (Man) 0.0 K/mm3 03/15/17 20:10 Monocytes # (Manual) 0.0 K/mm3 (0.0-0.8) 03/15/17 20:10 Eosinophils # (Manual) 0.0 K/mm3 (0.0-0.4) 03/15/17 20:10 Basophils # (Manual) 0.0 K/mm3 (0.0-0.1) 03/15/17 20:10 Metamyelocytes # 0.0 K/mm3 03/15/17 20:10 Myelocytes # 0.0 K/mm3 03/15/17 20:10 Promyelocytes # 0.0 K/mm3 03/15/17 20:10 Blast Cells # 0.0 K/mm3 03/15/17 20:10 WBC Morphology Not Reportable 03/15/17 20:10 Hypersegmented Neuts Not Reportable 03/15/17 20:10 Hyposegmented Neuts Not Reportable 03/15/17 20:10 Hypogranular Neuts Not Reportable 03/15/17 20:10 Smudge Cells Not Reportable 03/15/17 20:10 Toxic Granulation Not Reportable 03/15/17 20:10 Toxic Vacuolation Not Reportable 03/15/17 20:10 Dohle Bodies Not Reportable 03/15/17 20:10 Pelger-Huet Anomaly Not Reportable 03/15/17 20:10 Seth Rods Not Reportable 03/15/17 20:10 Platelet Estimate Consistent w auto 03/15/17 20:10 Clumped Platelets Not Reportable 03/15/17 20:10 Plt Clumps, EDTA Not Reportable 03/15/17 20:10 Large Platelets Not Reportable 03/15/17 20:10 Giant Platelets Not Reportable 03/15/17 20:10 Platelet Satelliting Not Reportable 03/15/17 20:10 Plt Morphology Comment Not Reportable 03/15/17 20:10 RBC Morphology Not Reportable 03/15/17 20:10 Dimorphic RBCs Not Reportable 03/15/17 20:10 Polychromasia Not Reportable 03/15/17 20:10 Hypochromasia Not Reportable 03/15/17 20:10 Poikilocytosis Few 03/15/17 20:10 Anisocytosis Not Reportable 03/15/17 20:10 Microcytosis Not Reportable 03/15/17 20:10 Macrocytosis Not Reportable 03/15/17 20:10 Spherocytes Not Reportable 03/15/17 20:10 Pappenheimer Bodies Not Reportable 03/15/17 20:10 Sickle Cells Not Reportable 03/15/17 20:10 Target Cells Not Reportable 03/15/17 20:10 Tear Drop Cells Not Reportable 03/15/17 20:10 Ovalocytes Not Reportable 03/15/17 20:10 Helmet Cells Not Reportable 03/15/17 20:10 [place] Bodies Not Reportable 03/15/17 20:10 [place] Rings Not Reportable 03/15/17 20:10 [place] Cells Not Reportable 03/15/17 20:10 Bite Cells Not Reportable 03/15/17 20:10 Crenated Cell Not Reportable 03/15/17 20:10 Elliptocytes Not Reportable 03/15/17 20:10 Acanthocytes (Spur) Not Reportable 03/15/17 20:10 Rouleaux Not Reportable 03/15/17 20:10 Hemoglobin C Crystals Not Reportable 03/15/17 20:10 Schistocytes Not Reportable 03/15/17 20:10 Malaria parasites Not Reportable 03/15/17 20:10 [place]man Bodies Not Reportable 03/15/17 20:10 Hem Pathologist Commnt No 03/15/17 20:10 PT 14.7 Sec. (12.2-14.9) 03/15/17 12:21 INR 1.09 (0.87-1.13) 03/15/17 12:21 APTT 70.5 Sec. (24.2-36.6) H* 03/15/17 12:21 Fibrinogen 375 mg/dl (211-480) 03/16/17 06:59 Heparin Anti-Xa Level < 0.10 U.I./ml (0.3-0.7) L 03/15/17 Unknown Sodium 139 mmol/L (137-145) 03/17/17 03:50 Potassium 4.2 mmol/L (3.6-5.0) 03/17/17 03:50 Chloride 105.9 mmol/L (98-107) 03/17/17 03:50 Carbon Dioxide 22 mmol/L (22-30) 03/17/17 03:50 Anion Gap 15 mmol/L 03/17/17 03:50 BUN 17 mg/dL (9-20) 03/17/17 03:50 Creatinine 0.8 mg/dL (0.8-1.5) 03/17/17 03:50 Estimated GFR > 60 ml/min 03/17/17 03:50 BUN/Creatinine Ratio 21 % 03/17/17 03:50 Glucose 108 mg/dL (75-100) H 03/17/17 03:50 POC Glucose 92 (70-105) 03/17/17 11:18 Hemoglobin A1c 5.8 % (4-6) 03/14/17 10:30 Calcium 7.7 mg/dL (8.4-10.2) L 03/17/17 03:50 Total Bilirubin 0.40 mg/dL (0.1-1.2) 03/15/17 06:57 AST 16 units/L (5-40) 03/15/17 06:57 ALT 15 units/L (7-56) 03/15/17 06:57 Alkaline Phosphatase 54 units/L (35-129) 03/15/17 06:57 Total Protein 6.9 g/dL (6.3-8.2) 03/15/17 06:57 Albumin 3.0 g/dL (3.9-5) L 03/15/17 06:57 Albumin/Globulin Ratio 0.8 % 03/15/17 06:57
--- NOTE | 2017-03-17 15:32 | Progress Note ---
Assessment and Plan Imp: 1. Acute PE and bilateral DVT; risk factors -> immobility/stasis, obesity, family history 2. Syncope 2/2 above 3. Morbid obesity Rec: 1. Eliquis per protocol; needs at least 6 months of OAC 2. Weight loss 3. Consider hypercoag. work-up 4. 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 Awake, alert. On RA. No complaints. Active Medications Acetaminophen (Tylenol) 650 mg PO Q4H PRN PRN Reason: Pain MILD(1-3)/Fever >100.5/HERRING Apixaban (Eliquis) 10 mg PO Q12HR [facility] PRN Reason: Protocol Stop: 03/22/17 09:59 Last Admin: 03/17/17 09:38 Dose: 10 mg Apixaban (Eliquis) 5 mg PO Q12HR [facility] PRN Reason: Protocol Benzonatate (Tessalon Perles) 100 mg PO Q8HR [facility] Last Admin: 03/17/17 15:01 Dose: 100 mg Bisacodyl (Dulcolax) 10 mg SD QDAY PRN PRN Reason: Constipation unrelieved by MOM Famotidine (Pepcid) 20 mg PO BID [facility] Last Admin: 03/17/17 09:37 Dose: 20 mg Hydromorphone HCl (Dilaudid) 0.25 mg IV Q3H PRN PRN Reason: Pain, Moderate (4-6) Insulin Aspart (Novolog) 0 units SUB-Q ACHS [facility] PRN Reason: Protocol Last Admin: 03/17/17 11:30 Dose: Not Given Magnesium Hydroxide (Milk Of Magnesia) 30 ml PO Q4H PRN PRN Reason: Constipation Morphine Sulfate (Morphine) 2 mg IV Q4H PRN PRN Reason: Pain, Moderate (4-6) Morphine Sulfate (Morphine) 4 mg IV Q4H PRN PRN Reason: Pain , Severe (7-10) Ondansetron HCl (Zofran) 4 mg IV Q8H PRN PRN Reason: Nausea And Vomiting Oxycodone/Acetaminophen (Percocet 5/325) 1 tab PO Q6H PRN PRN Reason: Pain, Moderate (4-6) Objective Vital Signs - 12hr 03/17/17 03/17/17 03/17/17 03:41 03:51 04:00 Temperature 98.6 F Pulse Rate 70 72 Pulse Rate [ 86 Right Posterior Tibial] Respiratory 19 19 Rate Blood Pressure 115/79 115/79 O2 Sat by Pulse 98 98 96 Oximetry 03/17/17 03/17/17 03/17/17 04:01 04:11 04:21 Temperature Pulse Rate 80 72 93 H Pulse Rate [ Right Posterior Tibial] Respiratory 19 20 28 H Rate Blood Pressure 131/86 131/86 131/86 O2 Sat by Pulse 99 98 95 Oximetry 03/17/17 03/17/17 03/17/17 04:31 04:41 04:51 Temperature Pulse Rate 73 72 73 Pulse Rate [ Right Posterior Tibial] Respiratory 18 18 19 Rate Blood Pressure 131/86 131/86 131/86 O2 Sat by Pulse 95 94 96 Oximetry 03/17/17 03/17/17 03/17/17 05:01 05:11 05:21 Temperature Pulse Rate 75 76 76 Pulse Rate [ Right Posterior Tibial] Respiratory 21 18 21 Rate Blood Pressure 131/86 131/86 131/86 O2 Sat by Pulse 95 94 94 Oximetry 03/17/17 03/17/17 03/17/17 05:31 05:40 05:50 Temperature Pulse Rate 67 71 77 Pulse Rate [ Right Posterior Tibial] Respiratory 18 19 19 Rate Blood Pressure 131/86 116/72 131/86 O2 Sat by Pulse 93 92 95 Oximetry 03/17/17 03/17/17 03/17/17 06:00 06:11 06:21 Temperature Pulse Rate 71 78 80 Pulse Rate [ Right Posterior Tibial] Respiratory 10 L 21 18 Rate Blood Pressure 123/82 131/86 131/86 O2 Sat by Pulse 94 95 93 Oximetry 03/17/17 03/17/17 03/17/17 06:31 06:41 06:51 Temperature Pulse Rate 83 76 66 Pulse Rate [ Right Posterior Tibial] Respiratory 19 17 17 Rate Blood Pressure 131/86 131/86 131/86 O2 Sat by Pulse 98 97 97 Oximetry 03/17/17 03/17/17 03/17/17 07:01 07:11 07:21 Temperature Pulse Rate 76 74 73 Pulse Rate [ Right Posterior Tibial] Respiratory 11 L 9 L 18 Rate Blood Pressure 131/86 131/86 131/86 O2 Sat by Pulse 97 98 95 Oximetry 03/17/17 03/17/17 03/17/17 07:31 07:41 08:00 Temperature 97.7 F Pulse Rate 90 Pulse Rate [ 82 Right Posterior Tibial] Respiratory 17 18 Rate Blood Pressure 131/86 131/86 O2 Sat by Pulse 95 94 98 Oximetry 03/17/17 03/17/17 03/17/17 08:10 08:21 08:31 Temperature Pulse Rate 111 H 84 Pulse Rate [ Right Posterior Tibial] Respiratory 23 13 Rate Blood Pressure 131/86 131/86 131/86 O2 Sat by Pulse 96 97 Oximetry 03/17/17 03/17/17 03/17/17 08:41 08:51 09:01 Temperature Pulse Rate 95 H 81 82 Pulse Rate [ Right Posterior Tibial] Respiratory 29 H 24 21 Rate Blood Pressure 131/86 123/82 123/82 O2 Sat by Pulse 92 96 95 Oximetry 03/17/17 03/17/17 03/17/17 09:11 09:21 09:31 Temperature Pulse Rate 80 86 84 Pulse Rate [ Right Posterior Tibial] Respiratory 20 14 23 Rate Blood Pressure 123/82 123/82 123/82 O2 Sat by Pulse 97 95 96 Oximetry 03/17/17 03/17/17 03/17/17 09:41 09:51 10:00 Temperature Pulse Rate 88 77 71 Pulse Rate [ Right Posterior Tibial] Respiratory 19 12 23 Rate Blood Pressure 142/89 142/89 149/90 O2 Sat by Pulse 99 99 98 Oximetry 03/17/17 03/17/17 03/17/17 10:11 10:21 10:31 Temperature Pulse Rate 77 78 78 Pulse Rate [ Right Posterior Tibial] Respiratory 13 14 18 Rate Blood Pressure 149/90 149/90 149/90 O2 Sat by Pulse 94 100 96 Oximetry 03/17/17 03/17/17 03/17/17 10:41 10:51 11:01 Temperature Pulse Rate 80 77 83 Pulse Rate [ Right Posterior Tibial] Respiratory 11 L 10 L 21 Rate Blood Pressure 149/90 149/90 149/90 O2 Sat by Pulse 97 98 96 Oximetry 03/17/17 03/17/17 03/17/17 11:11 11:21 11:31 Temperature Pulse Rate 72 76 71 Pulse Rate [ Right Posterior Tibial] Respiratory 16 16 19 Rate Blood Pressure 149/90 149/90 149/90 O2 Sat by Pulse 98 96 98 Oximetry 03/17/17 03/17/17 03/17/17 11:32 11:41 11:51 Temperature 97.5 F L Pulse Rate 84 75 Pulse Rate [ Right Posterior Tibial] Respiratory 19 13 Rate Blood Pressure 149/90 149/90 O2 Sat by Pulse 95 97 Oximetry 03/17/17 03/17/17 03/17/17 12:00 12:11 12:21 Temperature Pulse Rate 73 80 83 Pulse Rate [ Right Posterior Tibial] Respiratory 22 15 22 Rate Blood Pressure 138/92 138/92 138/92 O2 Sat by Pulse 97 100 96 Oximetry 03/17/17 03/17/17 03/17/17 12:31 12:41 12:51 Temperature Pulse Rate 103 H 92 H 100 H Pulse Rate [ Right Posterior Tibial] Respiratory 18 12 12 Rate Blood Pressure 138/92 138/92 138/92 O2 Sat by Pulse 95 90 98 Oximetry 03/17/17 03/17/17 03/17/17 13:01 13:11 13:21 Temperature Pulse Rate 95 H 100 H 84 Pulse Rate [ Right Posterior Tibial] Respiratory 22 16 24 Rate Blood Pressure 138/92 138/92 138/92 O2 Sat by Pulse 99 98 98 Oximetry 03/17/17 03/17/17 03/17/17 13:31 13:41 13:51 Temperature Pulse Rate 89 111 H 87 Pulse Rate [ Right Posterior Tibial] Respiratory 21 25 H 25 H Rate Blood Pressure 138/92 138/92 138/92 O2 Sat by Pulse 95 94 97 Oximetry 03/17/17 14:00 Temperature Pulse Rate 75 Pulse Rate [ Right Posterior Tibial] Respiratory 23 Rate Blood Pressure 125/64 O2 Sat by Pulse 97 Oximetry Constitutional: no acute distress, alert, other (obese) Eyes: non-icteric ENT: oropharynx moist Neck: supple Effort: normal Ascultation: Bilateral: clear Cardiovascular: regular rate and rhythm (no mrg) Gastrointestinal: normoactive bowel sounds, soft, non-tender, non-distended Integumentary: normal Extremities: no cyanosis, no edema (although L leg looks slightly larger in circumference), pink and warm Neurologic: normal mental status, non-focal exam, pupils equal and round, CN II- XII normal Psychiatric: mood appropriate, affect normal CBC and BMP: 03/16/17 05:15 03/17/17 03:50 ABG, PT/INR, D-dimer: PT/INR, D-dimer PT 14.7 Sec. (12.2-14.9) 03/15/17 12:21 INR 1.09 (0.87-1.13) 03/15/17 12:21 Abnormal lab findings: Abnormal Labs 03/13/17 03/13/17 03/13/17 21:24 22:00 22:00 WBC 11.9 H RBC 5.35 H Hgb 16.4 H Hct 49.7 H Lymph % (Auto) 7.6 L [place] % (Auto) 10.1 H Lymph # 0.9 L [place] # 1.2 H Seg Neutrophils % 81.3 H Seg Neuts % (Manual) Lymphocytes % (Manual) Seg Neutrophils # 9.7 H Seg Neutrophils # Man Lymphocytes # (Manual) APTT Fibrinogen Heparin Anti-Xa Level Chloride Carbon Dioxide Glucose 167 H POC Glucose 141 H Calcium Albumin 03/14/17 03/14/17 03/14/17 09:17 10:30 12:28 WBC RBC 5.13 H Hgb 15.6 H Hct 47.7 H Lymph % (Auto) 12.5 L [place] % (Auto) 10.2 H Lymph # [place] # 0.9 H Seg Neutrophils % 76.2 H Seg Neuts % (Manual) Lymphocytes % (Manual) Seg Neutrophils # Seg Neutrophils # Man Lymphocytes # (Manual) APTT Fibrinogen Heparin Anti-Xa Level Chloride Carbon Dioxide 21 L Glucose 141 H POC Glucose 113 H Calcium 8.2 L Albumin 03/14/17 03/14/17 03/15/17 17:36 23:25 06:57 WBC RBC 5.19 H Hgb 16.1 H Hct 48.5 H Lymph % (Auto) [place] % (Auto) 13.4 H Lymph # 1.1 L [place] # 0.9 H Seg Neutrophils % Seg Neuts % (Manual) Lymphocytes % (Manual) Seg Neutrophils # Seg Neutrophils # Man Lymphocytes # (Manual) APTT Fibrinogen Heparin Anti-Xa Level Chloride Carbon Dioxide Glucose POC Glucose 110 H 159 H Calcium Albumin 03/15/17 03/15/17 03/15/17 06:57 12:21 17:09 WBC RBC Hgb Hct Lymph % (Auto) [place] % (Auto) Lymph # [place] # Seg Neutrophils % Seg Neuts % (Manual) Lymphocytes % (Manual) Seg Neutrophils # Seg Neutrophils # Man Lymphocytes # (Manual) APTT 70.5 H* Fibrinogen 575 H Heparin Anti-Xa Level Chloride 108.6 H Carbon Dioxide 21 L Glucose 116 H POC Glucose 150 H Calcium 8.3 L Albumin 3.0 L 03/15/17 03/15/17 03/15/17 20:10 20:10 22:05 WBC RBC Hgb Hct Lymph % (Auto) [place] % (Auto) Lymph # [place] # Seg Neutrophils % Seg Neuts % (Manual) 94.0 H Lymphocytes % (Manual) 3.0 L Seg Neutrophils # Seg Neutrophils # Man 8.0 H Lymphocytes # (Manual) 0.3 L APTT Fibrinogen Heparin Anti-Xa Level Chloride Carbon Dioxide 20 L Glucose 200 H POC Glucose 172 H Calcium 8.0 L Albumin 03/15/17 03/16/17 03/16/17 Unknown 06:59 08:08 WBC RBC Hgb Hct Lymph % (Auto) [place] % (Auto) Lymph # [place] # Seg Neutrophils % Seg Neuts % (Manual) Lymphocytes % (Manual) Seg Neutrophils # Seg Neutrophils # Man Lymphocytes # (Manual) APTT Fibrinogen 568 H Heparin Anti-Xa Level < 0.10 L Chloride 108.6 H Carbon Dioxide Glucose 114 H POC Glucose 113 H Calcium 8.2 L Albumin 03/16/17 03/16/17 03/16/17 11:41 15:17 21:06 WBC RBC Hgb Hct Lymph % (Auto) [place] % (Auto) Lymph # [place] # Seg Neutrophils % Seg Neuts % (Manual) Lymphocytes % (Manual) Seg Neutrophils # Seg Neutrophils # Man Lymphocytes # (Manual) APTT Fibrinogen Heparin Anti-Xa Level Chloride Carbon Dioxide Glucose POC Glucose 109 H 111 H 130 H Calcium Albumin 03/17/17 03:50 WBC RBC Hgb Hct Lymph % (Auto) [place] % (Auto) Lymph # [place] # Seg Neutrophils % Seg Neuts % (Manual) Lymphocytes % (Manual) Seg Neutrophils # Seg Neutrophils # Man Lymphocytes # (Manual) APTT Fibrinogen Heparin Anti-Xa Level Chloride Carbon Dioxide Glucose 108 H POC Glucose Calcium 7.7 L Albumin Chest x-ray: report reviewed, image reviewed CT scan - chest: report reviewed, image reviewed
[2017-03-18] MEDS: TESSALON PERLES PO SCH (06:08)
--- NOTE | 2017-03-18 07:54 | Discharge Summary ---
Providers - Providers Date of Admission: 03/14/17 02:01 Date of discharge: 03/18/17 Attending physician: ELIEL DUMONT 03/14/17 03:43 Consult to Physician [CONS] Routine Consulting Provider: SILVIA ROCHA Reason For Exam: icu admission Place consult to:: Dr. 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 Patient was noted to be immobile and secondary to his flulike symptoms. Subsequently developed increased SOB and a syncopal episode on presentation. Patient was found to have large bilateral PE and is s/p EKOS now with improved SOB, on RA. Denies hx of VTE but mother had hx. No chest pain, fevers, chills, cough. Catheters were removed without incident. Patient was initially admitted to the ICU. Then later transferred to the floor. Patient was seen by pulmonary consultation who recommended hypercoagulable workup which was completed. The findings will be followed up as an outpatient. The patient is to continue eliquis per protocol for at least 6 months. Dedicated discharge time 32 minutes. Disposition: TO HOME OR SELFCARE Time spent for discharge: 32 - Discharge Diagnoses (1) Pulmonary embolism Status: Acute Qualifiers: Pulmonary embolism type: saddle Chronicity: acute Acute cor pulmonale presence: without acute cor pulmonale Qualified Code(s): I26.92 - Saddle embolus of pulmonary artery without acute cor pulmonale Core Measure Documentation - Palliative Care Palliative Care/ Comfort Measures: Not Applicable - Core Measures Any of the following diagnoses?: DVT/PE - VTE Discharge Requirements Deep Vein Thrombosis/Pulmonary Embolism Present on Admission: Yes Has pt received <5 days of overlap therapy or INR<2.0: Yes (eliquis) Anticoagulant overlap therapy prescribed at discharge: No Contraindication No Overlap Therapy order at DC: Medical Contraindication Exam - Constitutional Vitals: Temp Pulse Resp BP Pulse Ox 97.6 F 87 20 146/108 94 03/17/17 20:44 03/17/17 22:00 03/17/17 20:44 03/17/17 20:44 03/17/17 20:44 General appearance: Present: no acute distress, well-nourished - EENT Eyes: Present: PERRL ENT: hearing intact, clear oral mucosa - Neck Neck: Present: supple, normal ROM - Respiratory Respiratory effort: normal Respiratory: bilateral: CTA - Cardiovascular Heart Sounds: Present: S1 & S2. Absent: rub, click - Extremities Extremities: pulses symmetrical, No edema Peripheral Pulses: within normal limits - Abdominal General gastrointestinal: Present: soft, non-tender, non-distended, normal bowel sounds Male genitourinary: Present: normal - Integumentary Integumentary: Present: clear, warm, dry - Musculoskeletal Musculoskeletal: gait normal, strength equal bilaterally - Psychiatric Psychiatric: appropriate mood/affect, intact judgment & insight - Neurologic Neurologic: CNII-XII intact, moves all extremities Plan Activity: no restrictions Weight Bearing Status: Full Weight Bearing Follow up with: ANI HUI MD [Primary Care Provider] - 7 Days PAULA LAL MD [Staff Physician] - 7 Days ALEJANDRA OSEI MD [Staff Physician] - 7 Days
[2017-03-18] MEDS: NOVOLOG SUB-Q SCH (08:08)
[2017-03-18 08:24] VITALS: BP 144/98
[2017-03-18 08:38] LABS: BUN/Creatinine Ratio 18; Blood Urea Nitrogen 14 mg/dL (9-20); Calcium 8.5 mg/dL (8.4-10.2); Hemolysis Index 154
[2017-03-18] MEDS: ELIQUIS PO SCH (10:20)
[2017-03-18] MEDS: PEPCID PO SCH (10:20)
--- NOTE | 2017-03-18 12:19 | Vascular Lab Report ---
LOWER EXTREMITY VENOUS DUPLEX: REASON FOR EXAM: Pulmonary embolism. COMMENTS ON THE RIGHT: Partially occluding, acute deep venous thrombosis is seen in the common femoral vein. The remaining veins visualized are freely compressible without evidence of internal echogenicity. Spontaneous and phasic flow is diminished proximally. COMMENTS ON THE LEFT: Partially occluding acute thrombus is seen in the popliteal vein extending into the adjacent gastrocnemius vein. The remaining veins visualized are freely compressible without evidence of internal echogenicity. Spontaneous and phasic flow is present proximally. IMPRESSION: Partially occluding acute deep venous thrombosis in the right common femoral vein. Partially occluding acute deep venous thrombosis in the left popliteal vein. Acute deep venous thrombosis of the gastrocnemius vein in the left calf.
[2017-03-23] MEDS ORDERED: ELIQUIS PO SCH (22:00)
== END 2017-03-18 12:10 | disposition home or self-care (01) | DRG 175 ==
LOC: ED 20:56 → CC1 03-14 02:01 → UNDOADMIN 03-14 02:01 → CATH 03-15 14:06 → CC1 03-15 17:51 → 3A 03-17 17:45
PROVIDERS: ADMIT Internal Medicine; ATTEND Hospitalist
PROC: B41G1ZZ Fluoroscopy of Left Lower Extremity Arteries using Low Osmolar Contrast (ICD-10-PCS; principal; 2017-03-15)
PROC: B41F1ZZ Fluoroscopy of Right Lower Extremity Arteries using Low Osmolar Contrast (ICD-10-PCS; 2017-03-15)
PROC: B31U1ZZ Fluoroscopy of Pulmonary Trunk using Low Osmolar Contrast (ICD-10-PCS; 2017-03-15)
PROC: 02H Heart and Great Vessels, Insertion (ICD-10-PCS; 2017-03-15)
PROC: 3E06317 Introduction of Other Thrombolytic into Central Artery, Percutaneous Approach (ICD-10-PCS; 2017-03-15)
DX: I26.92 Saddle embolus of pulmonary artery without acute cor pulmonale (principal); J96.01 Acute respiratory failure with hypoxia; Z68.41 Body mass index [BMI] 40.0-44.9, adult; I82.4Z2 Acute embolism and thrombosis of unspecified deep veins of left distal lower extremity; I82.432 Acute embolism and thrombosis of left popliteal vein; I82.411 Acute embolism and thrombosis of right femoral vein; I10 Essential (primary) hypertension; E66.01 Morbid (severe) obesity due to excess calories; R73.9 Hyperglycemia, unspecified; Z82.49 Family history of ischemic heart disease and other diseases of the circulatory system; Z82.3 Family history of stroke; Z88.6 Allergy status to analgesic agent; Z88.0 Allergy status to penicillin; Z91.013 Allergy to seafood
CPT/HCPCS: 36415; 37211; 71275; 80048; 80053; 82962; 83036; 83516; 85007; 85025; 85301; 85305; 85307; 85384; 85520; 85610; 85613; 85730; 86147; 87400; 93005; 93010; 93306; 93970; 94760; 96365; 96366; 96368; 99291; C1751; C1757; C1769; C1894; J1200; J1644; J1815; J2250; J2930; J2997; J3010; J7030; J7040; J7050; J7060; Q9967